=== PATIENT | male | born 1970 | race Caucasian/White ===

== ENCOUNTER → 2019-11-03 13:38 | Outpatient (CLI) | payer BC, SELFPAY ==
--- NOTE | ~2019-11-03 | CT_ITS ---
EXAMINATION: CT abdomen pelvis w con INDICATION: Left lower quadrant pain for one week TECHNIQUE: Computed tomographic images of the abdomen and pelvis were obtained after the administrati on of 100 cc of Omnipaque 350 intravenous contrast. The dose-length product (DLP) was 1086.39 mGy-cm. Automated exposure control and iterative reconstruction technique were employed. COMPARISON: None available FINDINGS: The lung bases are clear. The heart size is normal. The liver, spleen, pancreas, gallbladde r, and adrenal glands are normal. The kidneys are unremarkable. No pathologically enlarged abdominal or pelvic lymph nodes are identified. There is colonic diverticulosis. In the region of the sigmoid c olon, there is wall thickening with edematous stranding of the perisigmoid fat and multiple foci of l eft-sided abdominal gas. There are no dilated loops of bowel. The appendix is normal. There is mild l umbar spondylosis. IMPRESSION: 1. Perforated sigmoid diverticulitis. These findings were discussed with Dr. Anay Dawn MD at 152 4 hours on 11/03/2019. Reviewed, dictated and finalized at location A. [employer]ITOLOG[employer] TEACHER IMPRESSION: 1. Perforated sigmoid diverticulitis. These findings were discussed with Dr. Hoa MD at 1524 hours on 11/03/2019.
[2019-11-03 14:24] LABS: Blood Urea Nitrogen 20 mg/dL (8-26); Estimated Glomerular Filt Rate 59
== END ==
PROVIDERS: PCP Family Medicine; Visit Provider Family Medicine
DX: R10.32 Left lower quadrant pain (principal); K57.32 Diverticulitis of large intestine without perforation or abscess without bleeding
CPT/HCPCS: 74177; Q9967

== ENCOUNTER 2019-11-03 17:54 | Inpatient (IN) | payer BC, SELFPAY ==
[2019-11-03 18:11] VITALS: BP 121/80; PULSE 99; RESP 18; TEMP 37.1; O2SAT 100
[2019-11-03 18:25] LABS: Basophils Percent Auto 0.4 % (0.2-1.2); Eosinophils Absolute Auto 0.2 K/mm3 (0-0.3); Eosinophils Percent Auto 1.9 % (0-4.4); Hematocrit 43.5 % (42.0-52.0); Hemoglobin 14.3 g/dL (14.0-18.0); Immature Granulocyte Percent A 1.2 % (0-0.5); Lymphocytes Absolute Auto 2.14 K/mm3 (0.9-3.2); Mean Corpuscular HGB Conc 32.9 g/dl (32-36); Mean Corpuscular Hemoglobin 28.2 pg (26-34); Mean Corpuscular Volume 85.8 fl (80-100); Mean Platelet Volume 9.5 fl (7.4-10.4); Monocytes Absolute Auto 0.7 K/mm3 (0.1-0.6); Monocytes Percent Auto 8.7 % (2.6-8.5); Neutrophils Absolute Auto 5.1 K/mm3 (1.3-6.7); Neutrophils Percent Auto 61.8 % (45.5-73.1); Platelet Count Result 304 k/mm3 (150-375); Red Blood Count 5.07 M/mm3 (4.6-6.20); Red Cell Distribution Width 11.7 % (11.5-14.5); White Blood Count 8.2 K/mm3 (4.5-10.0)
[2019-11-03 18:39] LABS: Alanine Aminotransferase 53 U/L (4-50); Albumin Level 4.3 g/dL (3.5-5.1); Alkaline Phosphatase 60 U/L (38-126); Aspartate Amino Transferase 36 U/L (17-59); Bilirubin,Total 0.4 mg/dL (0.2-1.3); Blood Urea Nitrogen 16 mg/dL (9-20); Calcium 9.3 mg/dL (8.4-10.2); Carbon Dioxide 26 mmol/L (22-30); Estimated CRCL calculation 86 ml/min; Estimated Glomerular Filt Rate > 60; Glucose 94 mg/dL (75-110)
[2019-11-03 18:44] LABS: Chloride 99 mmol/L (98-107); Lipase 273 U/L (23-300); Potassium 4.1 mmol/L (3.4-5.0); Sodium 137 mmol/L (137-145)
--- NOTE | 2019-11-03 19:10 | ED.ABDPAIN ---
HPI - Abdominal Pain General Chief Complaint: Abdominal Pain Stated Complaint: diverticulitis Time Seen by Provider: 11/03/19 19:08 Source: patient, family and RN notes reviewed Mode of arrival: other Limitations: no limitations History of Present Illness HPI narrative: Pt is a 49 y/o male who presents to the ED with c/o RLQ ABD pain that began a week ago. Pt was dx with diverticulitis a week ago, but he states that he could not get a CT scan until today. Pt was sent to the ED by his PCP with perforated diverticulitis. Pt has been taking Cipro and Flagyl for his diverticulitis. Pt states that two weeks ago he stopped taking a steroid for his asthma. Per pt's spouse, pt was taking Prednisone three weeks ago. Pt notes that he began to have testicular pain and he thought he had a hernia. Pt denies dysuria. MD elicited complaint: abdominal pain Pertinent past history: diverticulitis Onset (ago): week(s) (1) Pain Consistency: constant Location: RLQ Severity: mild Associated symptoms: other (testicular pain) Related Data Allergies Allergy/AdvReac Type Severity Reaction Status Date / Time sumatriptan Allergy Unknown Unknown Verified 10/28/19 10:50 ENVIRONMENTAL ALLERGENS Allergy Mild Unknown Uncoded 09/28/19 10:18 Review of Systems Review of Systems: All systems reviewed & are unremarkable except as noted in HPI and below Gastrointestinal: Gastrointestinal: Reports abdominal pain (RLQ) Genitourinary: Genitourinary: Denies dysuria and Reports testicular pain PMFSH Past Medical History Medical History (Updated 11/03/19 @ 20:20 by Rashel Delgado MD) Asthma Diverticulitis Hiatal hernia Surgical History Surgical History H/O sinus surgery History of repair of hiatal hernia Social History Social History Smoking status: Never smoker Second hand tobacco smoke exposure: No Alcohol intake: never Gender identity (if verbalized by the patient): Male Exam Const: General: healthy appearing, no acute distress and well developed Nutritional Appearance: well nourished Orientation/consciousness: patient oriented x3 (alert) and Other orientation findings (Alert) Limitations: no limitations HENMT: Head: normocephalic and atraumatic Ears: external ears normal General nose exam: No nasal discharge present and no epistaxis Face and sinus: face symmetric Mouth: Yes lip normal, Yes tongue normal and Yes moist mucous membranes Throat: other (No exudate, no erythema) Eyes: Conjunctivae: conjunctivae normal Sclera: sclerae normal EOM: EOMs intact bilaterally Neck: Neck: full ROM, no lymphadenopathy and supple Thyroid: thyroid normal Chest: Chest palpation & inspection: no tenderness Resp: Effort & Inspection: normal respiratory effort Auscultation: clear to auscultation bilaterally, no rales, no rhonchi, no wheezes and other (breath sounds equal) Cardio: Rate: regular rate Rhythm: regular rhythm Heart sounds: no gallops and no murmurs GI: Inspection: non-distended GI Palp: Yes abdominal tenderness (RLQ) Auscultation: other (bowel sounds present) : General: Yes no CVA tenderness Back/Spine/Pelvis: Back: no CVA tenderness Thoracic/Lumbar Spine: thoracic and lumbar spine normal to inspection Skin: General skin exam: normal color and no rashes or lesions noted Neuro: General: patient oriented x3 (alert), moves all extremities and no focal motor deficits Cranial nerves: Yes facial symmetry Speech: normal speech Motor exam (neuro): Motor abnormalities not present Extrem: General: normal to inspection, full ROM and no pedal edema Psych: Affect: normal affect Course Consultations Consultation #1: Discussed case with Christine (General Surgery). Accepts consult. Date: 11/03/19 Time: 19:51 Consultation #2: Discussed case with JASSON Portillo (Hospitalist). Accepts admission. Date: 11/03/19 Time: 19
[2019-11-03 19:42] LABS: Add Urine Microscopic? YES; Appearance Urine Clear (Clear); Bilirubin Urine Negative (Negative); Blood Urine Negative (Negative); Color Urine Yellow (Yellow); Glucose Urine UA Negative (Negative); Ketones Urine Negative (Negative); Leukocyte Esterase Ur 1+ LEU/UL (Negative); Nitrate Urine Negative (Negative); Protein Urine Negative (Negative); RBC Urine 0-2 /hpf (0-2); Squamous Epithelial Cell Urine Rare /hpf (Few); Urobilinogen Urine Negative mg/dL (<2.0); WBC Urine 0-3 /hpf
[2019-11-03 19:44] LABS: Specific Grav Ur 1.042 (1.001-1.035)
[2019-11-03 21:13] VITALS: BP 119/76; PULSE 100; RESP 17; O2SAT 98
[2019-11-03 22:00] VITALS: BP 122/76; PULSE 88; RESP 18; TEMP 36.7; O2SAT 99; BMI 29.5
--- NOTE | 2019-11-03 22:00 | ADMGEN ---
This patient, Paul Dia, was admitted to [address] [facility] Surg Room 313-01. Patient/family oriented to hospital policies and general routines including ID bracelet, bed and alarms, visiting hours, pain management, procedures, bathroom and other care routines, personal items, smoking policy, room service/diet, and visiting hours. Valuables list has been completed. Information on how to activate the Rapid Response Team has been discussed. Patient/Family are encouraged to report perceived risks to care and to ask questions if they do not understand what they are told or what they should do.
[2019-11-03] MEDS: LACTATED RINGERS 1,000 ML 125 ML IV CONT (23:08)
--- NOTE | 2019-11-04 05:09 | PM.IMHP ---
H&P: HPI History of Present Illness Chief complaint: COMPLICATED DIVERTICULITIS W/ PREFORATION on CT Narrative: Paul Dia is a 49 year old male with a past medical history asthma and prior hiatal hernia repair who presented to the ER after an outpatient CT scan demonstrated perforated diverticulitis. The patient reports that on the he was helping a friend get rid of some cases of water. At the end of the day when he went home he just did not feel well. He had some does mild lower abdominal discomfort in the left lower quadrant that felt as if it extended down into the testicle. Did not notice any swelling in the testicle. A couple of days later even the motion of sitting in a car was quite uncomfortable. He stated the pain was an 8/10 intensity and was similar to someone kicking in the stomach and not stopping.? Then on the night of the he developed chills and rigors. He had not had any nausea or vomiting. He has been having normal bowel movements. The patient had went his primary care physician's office on October 28 where he realized that the pain radiated from the right carotid stent to the left quadrant with palpation of his abdomen. He also had rebound tenderness in the left lower quadrant and he was started on Flagyl and Cipro for suspected diverticulitis. He was given order for CT scan of the abdomen but was unable to schedule the CT scan scheduled until November 03 due work. He reports that about an hour after he got the CT performed he was called and told to come to the ER because the CT demonstrated perforated sigmoid diverticulitis. He has been taking his antibiotics as directed. He reports his pain has gradually improved and is currently about a 1/10 intensity. He had looked up online the recommended diet for diverticulitis and has been drinking mostly clear liquid diet since his appointment with the doctor. He reports that his stools have been a bit softer since he was started on antibiotics but he denies any blood or mucus. He had also developed a little bit of a cough and tightness in his chest that he attributed to a side effect of the antibiotics. He reported sensation was similar to when he was having difficulties with his asthma but his inhalers were not helping. He states that since he arrived to the hospital those symptoms have improved. He has not had been having any difficulty with urination. He has 3 brothers who have had diverticulitis and his father has also suffer from diverticulitis. He has 7 brothers and a sister. His sister at age 7 of Timo syndrome. Review of Systems Review of Systems: Narrative: Except as documented in the HPI, all other systems were reviewed and are negative. 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 Family History Family History (Updated 11/03/19 @ 22:15 by Talia Bacon RN) Mother Breast cancer Father Bladder cancer Sibling Timo syndrome Sibling Diverticulitis Sibling Diverticulitis Sibling Diverticulitis Social History Social History (Updated 11/04/19 @ 05:52 by Melissa Rodriges DO) Social History: Primary care physician: Dr. Anay Dawn Smoking status: Never smoker Second hand tobacco smoke exposure: No Alcohol intake: current Drinks per week: 3 Alcohol use details: The patient works at a [employer]. Substance use: never Living arrangements: with family Additional katy
[2019-11-04 06:00] VITALS: BP 117/75; PULSE 75; RESP 18; TEMP 37.1; O2SAT 98
[2019-11-04 07:44] LABS: Basophils Percent Auto 0.2 % (0.2-1.2); Eosinophils Absolute Auto 0.2 K/mm3 (0-0.3); Hematocrit 41.3 % (42.0-52.0); Hemoglobin 13.7 g/dL (14.0-18.0); Immature Granulocyte Absolute 0.06 K/mm3 (0.00-0.031); Immature Granulocyte Percent A 1.1 % (0-0.5); Lymphocytes Absolute Auto 1.73 K/mm3 (0.9-3.2); Lymphocytes Percent Auto 32.6 % (18.3-44.2); Mean Corpuscular HGB Conc 33.2 g/dl (32-36); Mean Corpuscular Hemoglobin 28.2 pg (26-34); Mean Corpuscular Volume 85.2 fl (80-100); Mean Platelet Volume 9.4 fl (7.4-10.4); Monocytes Absolute Auto 0.4 K/mm3 (0.1-0.6); Monocytes Percent Auto 8.1 % (2.6-8.5); Neutrophils Absolute Auto 2.9 K/mm3 (1.3-6.7); Platelet Count Result 259 k/mm3 (150-375); Red Blood Count 4.85 M/mm3 (4.6-6.20); Red Cell Distribution Width 11.5 % (11.5-14.5); White Blood Count 5.3 K/mm3 (4.5-10.0)
[2019-11-04] MEDS: LACTATED RINGERS 1,000 ML 125 ML IV CONT ×2 (07:53→16:20)
[2019-11-04 07:59] LABS: Blood Urea Nitrogen 14 mg/dL (9-20); Calcium 8.9 mg/dL (8.4-10.2); Carbon Dioxide 28 mmol/L (22-30); Chloride 99 mmol/L (98-107); Estimated CRCL calculation 71 ml/min; Estimated Glomerular Filt Rate 59; Glucose 101 mg/dL (75-110); Potassium 4.5 mmol/L (3.4-5.0); Sodium 139 mmol/L (137-145)
[2019-11-04 08:00] VITALS: PULSE 75; RESP 18; O2SAT 98
--- NOTE | 2019-11-04 09:43 | PM.CNGS ---
Assessment and Plan Assessment and plan (1) Diverticulitis of large intestine with complication: Code(s): K57.32 - Diverticulitis of large intestine without perforation or abscess without bleeding Status: Acute Assessment and Plan: CT scan reviewed and discussed with the patient. He has evidence of sigmoid diverticulitis with microperforation, which is his first episode. No evidence of abscess. White blood cell count is normal, patient is afebrile, and he had already began improving clinically while on the oral antibiotics. He currently is having no pain but is [employer]. I discussed the pathophysiology of perforated diverticulitis with the patient and the treatment plan at this point. We will continue IV antibiotics, analgesics, and IV fluids. We will allow him to try a clear liquid diet now and try slowly advancing him to a low fiber diet eventually. Hopefully, he will continue to improve with current treatment, but I did discuss how perforated diverticulitis could progress if it does not improve with current treatment. We will continue to follow the patient with serial abdominal exams and labs. Thank you for allowing me to see the patient in consultation and we will continue to follow along with you. Additional Plan Discussed the patient's case and plan of care with Dr. King. History of Present Illness Consult details Consult date: 11/04/19 Reason for consult: other (Perforated sigmoid diverticulitis) Requesting physician: Rashel Delgado MD Narrative: This is a 49-year-old male with a history of asthma and a Melvina Fundoplication in 2013, who presented to the emergency department yesterday by the instruction of his primary care provider. He reports initially having an onset of left testicular pain that radiates to his left hip and left lower abdomen on 's weekend. He had recently been carrying large cases of water and thought he possibly had caused a hernia due to heavy lifting. He denies bulging or swelling around the groin, but did feel his left testicle was slightly swollen. He was tolerating a diet and his bowels were moving normally. The pain was mild and continuous but intermittently would increase in severity. He reports associated chills and body aches, but no fever. He then presented to his primary care provider on 10/28/19 for the testicular and abdominal pain. He was treated with oral antibiotics for diverticulitis and a CT scan of the abdomen and pelvis was ordered. He had been taking the oral antibiotics as prescribed and his pain improved after about 24 hours on the oral antibiotics. His CT scan was unable to be scheduled until yesterday, 11/03/2019. He presented for the CT, which showed perforated sigmoid diverticulitis. There was no mention of inguinal hernias. The patient's PCP called him and instructed him to present to the emergency department for further evaluation. Labs were unremarkable with a normal white blood cell count. The patient was admitted to the hospitalist service and started on IV antibiotics, IV fluids, and made NPO. Our service was consulted for surgical evaluation of the perforated sigmoid diverticulitis. The patient is now seen on the medical floor this morning. He reports no abdominal or testicular pain at this time. He states his left lower abdomen is [employer], but less tender than when he saw his PCP a few days ago. He states initially he was unable to sleep on his stomach and his pain has improved significantly enough to be able the lie on his stomach at night. He denies any nausea, vomiting, or bloating. Reports his bowels have been moving normally without any blood noted in his stool. Denies any history of diverticulitis in the past. Reports he has been eating a regular diet and eating normally. Denies changes in urination or hematuria. Denies swelling or pain in the testicles today. No other complaints at this time. Also to note, the patient was rec
--- NOTE | 2019-11-04 10:07 | PM.IMPN ---
Progress Note: A&P Assessment and Plan (1) Diverticulitis of large intestine with complication: Code(s): K57.32 - Diverticulitis of large intestine without perforation or abscess without bleeding Status: Acute Assessment and Plan: Patient's symptoms had been improving even on PO antibiotics; since CT findings, patient has been placed on IV Zosyn. WBC WNL, VSS, afebrile. General surgery has been consulted and appreciate recommendations. Continue IVF and await further recommendations from General surgery; possible advancement in diet today NPO for now Monitor (2) Asthma: Code(s): J45.909 - Unspecified asthma, uncomplicated Status: Acute Assessment and Plan: Slight SOB today. Declined neb treatment today Continue home Advair, albuterol Continue Neb treatments as needed Subjective Date/time seen: 11/04/19 10:07 Interval history: Patient is a 49 yo M with history of asthma and hiatal hernia with h/o repair here for diverticulitis with recently discovered perforation on CT imaging. Patient states he has been improving with his PO antibiotics prior to admission, and continues to do well. Does not complain of any pain. No changes in BMs; no blood/melena/mucus. No n/v. He feels slightly short of breath today, he thinks is related to his asthma. Otherwise no complaints. Denies f/c/ns, headaches, dizziness, lightheadedness, changes in v/h, cp/palpitations, cough, n/v/d/c, abd pain, dysphagia, melena, brbpr, dysuria, hematuria, cloudy urine, calf pain/swelling, s/sx of stroke Review of Systems Review of Systems: All systems reviewed & are unremarkable except as noted in HPI and below Exam Narrative: Exam Narrative: Patient sitting upright in bed at time of visit; is in room visiting at time Const: General: cooperative, healthy appearing, comfortable, no acute distress, well developed and alert Nutritional Appearance: well nourished Orientation/consciousness: patient oriented x3 HENMT: Head: normocephalic and atraumatic General nose exam: Normal nares present Face and sinus: face symmetric Mouth: Yes tongue normal and Yes moist mucous membranes Teeth and gingiva: fair dentition Throat: posterior oropharynx normal and uvula midline Eyes: General: appearance normal, both eyes and all related structures Sclera: sclerae normal Pupils: Equal, round and reactive pupils present EOM: EOMs intact bilaterally Neck: Neck: trachea midline and supple Resp: Effort & Inspection: normal respiratory effort Auscultation: clear to auscultation bilaterally Cardio: Rate: regular rate Rhythm: regular rhythm Heart sounds: no murmurs GI: Inspection: non-distended GI Palp: Yes abdominal tenderness (Lower abdomen) and Yes Soft to palpation Auscultation: normal bowel sounds and normoactive bowel sounds Skin: General skin exam: normal color and no rashes or lesions noted Neuro: General: patient oriented x3, moves all extremities and no focal motor deficits Motor exam (neuro): 5/5 motor strength present throughout Extrem: Right lower extremity: no edema Left lower extremity: no edema Other: No calf ttp/swelling Psych: Mental Status: mental status grossly normal Affect: normal affect Objective Data Vital Signs Vital Signs: Vital Signs - 24 hr 11/03/19 18:11 11/03/19 21:13 11/03/19 22:00 Temperature 98.7 F 98.0 F Pulse Rate 99 100 88 Respiratory Rate 18 17 18 Blood Pressure 121/80 119/76 122/76 Pulse Oximetry 100 98 99 11/04/19 06:00 Temperature 98.7 F Pulse Rate 75 Respiratory Rate 18 Blood Pressure 117/75 Pulse Oximetry 98 Intake/Output Intake/Output: Intake & Output 11/01/19 11/02/19 11/03/19 11/04/19 23:59 23:59 23:59 23:59 Intake Total 50 1050 Output Total 700 Balance 50 350 Meds/Results Medications: Active Medications Generic Name Dose Route Start Last Admin Trade Name F
[2019-11-04] MEDS: LORATADINE 10 MG TABLET PO (11:47)
[2019-11-04 14:00] VITALS: BP 124/71; PULSE 72; RESP 20; TEMP 36.6; O2SAT 97
[2019-11-04 22:00] VITALS: BP 114/69; PULSE 72; RESP 18; TEMP 36.5; O2SAT 98
[2019-11-05 06:00] VITALS: BP 115/62; PULSE 77; RESP 18; TEMP 36.7; O2SAT 98
[2019-11-05 06:25] LABS: Basophils Percent Auto 0.3 % (0.2-1.2); Eosinophils Absolute Auto 0.3 K/mm3 (0-0.3); Hematocrit 40.6 % (42.0-52.0); Hemoglobin 13.2 g/dL (14.0-18.0); Immature Granulocyte Absolute 0.05 K/mm3 (0.00-0.031); Immature Granulocyte Percent A 0.8 % (0-0.5); Lymphocytes Absolute Auto 1.86 K/mm3 (0.9-3.2); Mean Corpuscular HGB Conc 32.5 g/dl (32-36); Mean Corpuscular Hemoglobin 28.3 pg (26-34); Mean Corpuscular Volume 87.1 fl (80-100); Mean Platelet Volume 9.6 fl (7.4-10.4); Monocytes Absolute Auto 0.5 K/mm3 (0.1-0.6); Monocytes Percent Auto 8.4 % (2.6-8.5); Neutrophils Absolute Auto 3.5 K/mm3 (1.3-6.7); Neutrophils Percent Auto 56.5 % (45.5-73.1); Platelet Count Result 246 k/mm3 (150-375); Red Blood Count 4.66 M/mm3 (4.6-6.20); Red Cell Distribution Width 11.5 % (11.5-14.5); White Blood Count 6.2 K/mm3 (4.5-10.0)
[2019-11-05] MEDS: LORATADINE 10 MG TABLET PO (08:02)
--- NOTE | 2019-11-05 10:52 | PM.PNGS ---
Progress Note: A&P Assessment and Plan (1) Diverticulitis of large intestine with complication: Code(s): K57.32 - Diverticulitis of large intestine without perforation or abscess without bleeding Status: Acute Assessment and Plan: Patient continues to clinically improve. He is having no abdominal pain and is non-tender on exam. He is afebrile and WBC normal today. Will advance him as tolerated to a low fiber diet today. If he is tolerating the low fiber diet later today, then it is okay from a surgical standpoint to discharge the patient home this afternoon. Will send him on 10 more days of oral antibiotics and switch him to Levaquin/Flagyl. Follow-up with Dr. King in our office in 2 weeks. Subjective Subjective Date/Time Seen: 11/05/19 10:00 Patient reports: no new complaints, feels better and bowel movement Interval history: Patient seen and examined. Reports tolerating clear liquids well. Just had a full liquid tray and has no complaints following this. Denies nausea, vomiting, or bloating. Reports having multiple loose bowel movements overnight. Denies any abdominal pain. No other complaints at this time. Review of Systems Review of Systems: All systems reviewed & are unremarkable except as noted in HPI and below Exam Const: General: comfortable, no acute distress, alert and awake GI: Inspection: normal to inspection and non-distended GI Palp: Yes Soft to palpation, No Tenderness to palpation present (GI), No Guarding due to palpation present (GI) and No Rebound tenderness present Auscultation: normal bowel sounds Neuro: General: moves all extremities and no focal motor deficits Psych: Mental Status: mental status grossly normal Attitude: cooperative Thought process: Normal thought process present Objective Data Vital Signs Vital Signs: Vital Signs - 24 hr 11/04/19 14:00 11/04/19 22:00 11/05/19 06:00 Temperature 36.6 C 36.5 C 36.7 C Pulse Rate 72 72 77 Respiratory Rate 20 18 18 Blood Pressure 124/71 114/69 115/62 Pulse Oximetry 97 98 98 Intake/Output Intake/Output: Intake & Output 11/02/19 11/03/19 11/04/19 11/05/19 23:59 23:59 23:59 23:59 Intake Total 50 3150 550 Output Total 700 Balance 50 1230 550 Meds/Results Medications: Active Medications Generic Name Dose Route Start Last Admin Trade Name Freq PRN Reason Stop Dose Admin Acetaminophen 650 mg 11/03/19 20:17 Tylenol Tablet PO Q4H PRN Mild Pain (1-3) or Fever Albuterol 1 puff 11/04/19 10:04 Proventil Hfa INHALATION Q4H PRN shortness of breath or wheezing Piperacillin/Tazobactam/Dextrose 3.375 gm in 50 mls @ 100 mls/hr 11/04/19 03:00 11/05/19 08:43 Zosyn 3.375 Gm/D5w 50ml Pm IVPB Infused Q6H DREA Infusion Loratadine 10 mg 11/04/19 09:00 11/05/19 08:02 Claritin PO 10 mg QAM DREA Administration Ondansetron HCl 4 mg 11/03/19 20:17 Zofran Inj IV PUSH Q4H PRN Nausea Fluticasone/Salmeterol 2 puff 11/04/19 08:00 11/05/19 08:30 Advair Hfa 115-21 Mcg Inhaler (*Sp) INHALATION 2 puff Q12HRT DREA Administration Labs Labs: Laboratory Results - last 24 hr 11/05/19 05:56 WBC 6.2 RBC 4.66 Hgb 13.2 L Hct 40.6 L MCV 87.1 MCH 28.3 MCHC 32.5 RDW 11.5 Plt Count 246 MPV 9.6 Immature Gran % (Auto) 0.8 H Neut % (Auto) 56.5 Lymph % (Auto) 30.0 [place] % (Auto) 8.4 Eos % (Auto) 4.0 Baso % (Auto) 0.3 Lymph # (Auto) 1.86 [place] # (Auto) 0.5 Eos # (Auto) 0.3 Baso # (Auto) 0.0 Abs Immat Gran (auto) 0.05 H Absolute Neuts (auto) 3.5 Absolute Nucleated RBC 0.0 Nucleated RBC % 0.0 Quality VTE Prophylaxis VTE prophylaxis: mechanical ordered
--- NOTE | 2019-11-05 11:32 | PM.DS ---
DS: Diagnosis Admitting Diagnosis Admitting Diagnosis: Diverticulitis of large intestine without perforation or abscess without bleeding Discharge Diagnosis (1) Diverticulitis of large intestine with complication: Code(s): K57.32 - Diverticulitis of large intestine without perforation or abscess without bleeding Status: Acute Assessment and Plan: Patient's symptoms continue to improve today and had been improving even on PO antibiotics prior to admission; since CT findings, patient has been placed on IV Zosyn. WBC WNL, VSS, afebrile. Non-bloody BM today. Tolerating PO thus far. General surgery has been consulted and appreciate recommendations. Patient's diet to be advanced per Surgery recommendations [employer] consulted PO antibiotics at discharge Monitor today; possibly home later today (2) Asthma: Code(s): J45.909 - Unspecified asthma, uncomplicated Status: Acute Assessment and Plan: No complaints today. Lung exam unremarkable Continue home Advair, albuterol DS: Summary Hospital Course Reason for hospitalization: Perforated diverticulitis Hospital Course: Patient is a 49 yo M with history of asthma and prior hiatal hernia repair who presented to the ER on 11/03 from instructions from his PCP after an outpatient CT scan demonstrated perforated diverticulitis. Patient began noticing symptoms of mild lower abdominal discomfort on 10/23; this pain was mainly in LLQ and radiated to the testicle. Over the next couple of days, he noticed the pain worsening. on 10/27 he began to have chills and rigors. He then went to his PCP on 10/28 where upon physical exam, it was felt patient had diverticulitis; he was subsequently started on PO cipro and flagyl from his PCP but was unable to perform CT of the abdomen until 11/03 due to work. This CT then showed findings consistent of perforated diverticulitis and patient was instructed to proceed to the ER for further evaluation. Please see H&P for further details Presenting VS: BP 121/80, HR 99, RR 18, temp 98.7, sat 100% RA Presenting Pertinent labs: CBC, CMP, lipase, UA grossly unremarkable upon arrival to ER Micro: none Imagin/25 CT abd/pelvis IMPRESSION: 1. Perforated sigmoid diverticulitis. These findings were discussed with Dr. Anay Dawn MD at 1524 hours on 11/03/2019. ECG: none Patient was admitted to the hospitalist service for further evaluation of perforated diverticulitis; General Surgery was consulted for further input and recommendations. Patient had noted that his symptoms had actually been improving with PO antibiotics prior to his admission date. His PO antibiotics were held upon arrival and patient was placed on IV zosyn during his hospital course. He was made NPO and over the course of his hospital stay, his diet was advanced to a low fiber diet per Surgery recommendations; this proceeded without any issues. On day of discharge, his symptoms had nearly resolved, having non-bloody, non-mucus BMs. Patient was hemodynamically stable and in improved condition for discharge on 11/05. He was discharge on PO Flagyl and Levaquin per Surgery recommendations. He was to follow up with Surgery in 2 weeks after discharge and with his PCP. Patient agreeable and comfortable with discharge plan. Status at Discharge Overall status at discharge: patient is progressing back to baseline Time Spent with Patient Time attestation: Total time spent providing and/or coordinating discharge services: 35 minutes Time spent: Greater than 30 minutes Exam Narrative: Exam Narrative: Patient sitting upright in bed at time of visit Const: General: cooperative, healthy appearing, comfortable, no acute distress, well developed and alert Nutritional Appearance: well nourished Orientation/consciousness: patient oriented x3 HENMT: Head: normocephalic and atraumatic General nose exam: Normal nares pres
--- NOTE | 2019-11-05 13:58 | PCNSR ---
On 11/05/19, the student, Magaly Zavala, provided low fiber education and completed [facility] documentation on this patient. I have reviewed the student's documentation and agree with the education.
== END 2019-11-05 16:15 | disposition home or self-care (01) | DRG 392 ==
LOC: ANHED 20:20 → ANH3MEDSUR 11-04 05:13
PROVIDERS: Emergency Medicine; Admitting Provider Internal Medicine; Emergency Provider Emergency Medicine; PCP Family Medicine; Visit Provider Physician Assistant
DX: K57.20 Diverticulitis of large intestine with perforation and abscess without bleeding (principal); J45.909 Unspecified asthma, uncomplicated; K46.9 Unspecified abdominal hernia without obstruction or gangrene
CPT/HCPCS: 36415; 74177; 80048; 80053; 81001; 83690; 85025; 94640; 96365; 99285; A9270; J2543; J7120

== ENCOUNTER → 2020-06-14 07:50 | Outpatient (CLI) | payer BC, SELFPAY ==
--- NOTE | ~2020-06-14 | XR_ITS ---
EXAMINATION: XR thoracic spine 2V DATE: 06/14/2020 08:29 INDICATION: Mid back pain TECHNIQUE: AP, lateral and lateral swimmer's views of the thoracic spine were obtained. COMPARISON: 05/14/2009 FINDINGS: There is mild S shaped curvature of the thoracic spine. No fracture is identified. The vert ebral body heights and alignment are maintained. There is mild loss of intervertebral disc space heig ht in the lower thoracic spine. Small degenerative osteophytes project from the anterior endplates of multiple vertebral bodies. IMPRESSION: 1. Mild thoracic spondylosis without acute findings. Reviewed, dictated and finalized at location A.
== END ==
PROVIDERS: PCP Family Medicine; Visit Provider Family Medicine
DX: R10.9 Unspecified abdominal pain (principal); M47.894 Other spondylosis, thoracic region
CPT/HCPCS: 72070

== ENCOUNTER → 2020-06-20 10:33 | Outpatient (CLI) | payer BC, SELFPAY ==
--- NOTE | ~2020-06-20 | CT_ITS ---
EXAMINATION: CT abdomen pelvis w con INDICATION: Left upper quadrant abdominal pain, history of perforated diverticulitis TECHNIQUE: Computed tomographic images of the abdomen and pelvis were obtained after the administrati on of 100 cc of Omnipaque 350 intravenous contrast. The dose-length product (DLP) was 1095.43 mGy-cm. Automated exposure control and iterative reconstruction technique were employed. COMPARISON: 11/03/2019 FINDINGS: The lung bases are clear. The heart size is normal. The liver, spleen, pancreas, gallbladde r, and adrenal glands are normal. The kidneys are unremarkable. No pathologically enlarged abdominal or pelvic lymph nodes are identified. There is no free intraperitoneal gas or evidence of bowel obstr uction. Colonic diverticulosis is present without evidence of diverticulitis. The appendix is normal. There is moderate lumbar spondylosis at L5-S1. Tiny fat-containing umbilical hernias are noted. IMPRESSION: 1. No CT correlate for the patient's symptoms. Diverticulosis without evidence of diverticulitis. Reviewed, dictated and finalized at location A.
== END ==
PROVIDERS: PCP Family Medicine; Visit Provider Family Medicine
DX: R10.12 Left upper quadrant pain (principal)
CPT/HCPCS: 74177; Q9967

== ENCOUNTER 2020-09-13 00:59 | Outpatient (CLI) | payer BC, SELFPAY ==
[2020-09-13 19:42] LABS: SARS-CoV-2 RNA PCR Negative
== END 2020-09-13 01:00 | disposition home or self-care (01) ==
LOC: ANHCOVIDDT 01:00
PROVIDERS: PCP Family Medicine; Visit Provider Internal Medicine Gastroenterology
DX: Z01.812 Encounter for preprocedural laboratory examination (principal); Z20.822 Contact with and (suspected) exposure to COVID-19
CPT/HCPCS: C9803; U0003

== ENCOUNTER 2020-09-16 00:49 | Day surgery (SDC) | payer BC, SELFPAY ==
[2020-08-31 11:00] VITALS: BMI 30.2
[2020-09-16 06:54] VITALS: BP 120/78; PULSE 81; RESP 18; TEMP 36.1; O2SAT 98
[2020-09-16] MEDS: LACTATED RINGERS 1,000 ML 150 ML IV CONT (07:10)
--- NOTE | 2020-09-16 07:26 | WPDANESEPPF ---
Anes - Initial Pre Proc Eval Procedure: Operation Date: 09/16/20 08:00 Proposed Procedures p Screening Colonoscopy - Kory Stephenson MD Date/Time: 09/16/20 07:26 Surgeon: Kory Stephenson MD Pre Op Diagnosis: neoplasm screening Patient Data Age: 50 Gender: M Height: 6 ft 1 in Weight: 104.7 kg Last Vital Signs Temp 96.9 F L 09/16/20 06:54 Pulse 81 09/16/20 06:54 Resp 18 09/16/20 06:54 BP 120/78 09/16/20 06:54 Pulse Ox 98 09/16/20 06:54 Allergies Allergy/AdvReac Type Severity Reaction Status Date / Time adhesive tape Allergy Intermediate Rash Verified 08/31/20 11:06 Home Medications Medication Instructions Recorded Confirmed Type albuterol sulfate 90 mcg/actuation 1 puff INHALATION Q4H PRN #18 gm 09/28/19 08/31/20 Rx aerosol inhaler Advil Allergy Sinus 1 tablet PO Q4-6H PRN 11/03/19 08/31/20 History Daya-D 24 Hour 1 tablet PO QAM 11/03/19 08/31/20 History fluticasone 500 mcg-salmeterol 50 1 inh INHALATION Q12H #60 ea 08/08/20 08/31/20 Rx mcg/dose blistr powdr for inhalation meloxicam 15 mg tablet 15 mg PO DAILY #30 tablet 08/22/20 08/31/20 Rx montelukast 10 mg tablet 10 mg PO DAILY #90 tablet 09/07/20 Rx Patient hx anesthesia problems: none Family hx anesthesia problems: none [facility] Past Medical History Medical History (Updated 08/08/20 @ 13:58 by Anay Dawn MD) Asthma Hiatal hernia Repaired in 2013 at [facility]. Mild persistent asthma Surgical History Surgical History H/O sinus surgery 2011. History of repair of hiatal hernia Laparoscopic Melvina fundoplication performed at [facility] in 2013. Family History Family History Mother Breast cancer Father Bladder cancer Diverticulitis Sibling Timo syndrome Sibling Diverticulitis Sibling Diverticulitis Sibling Diverticulitis Social History Social History Social History: Primary care physician: Dr. Anay Dawn Smoking status: Never smoker Second hand tobacco smoke exposure: No Alcohol intake: current Drinks per week: 3 Alcohol use details: BEERS Substance use: never Substance use type: does not use Living arrangements: with family Additional living arrangements comments: His and 2 daughters aged 14 and 10. 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 Gender identity (if verbalized by the patient): Male Spiritual care concerns: No Agree to blood products: Yes Anes - Eval Final PreProcedure Day of Procedure 09/16/20 07:26 Patient weight: overweight Heart: regular rate and rhythm Lungs: clear to auscultation Airway: Mallampati scale class II Neurological: alert and oriented Last oral intake: >/= 8 hours ASA classification: II Emergent: no Anesthetic plan: proceed Anesthesia type and monitoring: general GIVS and standard monitoring Informed Consent: The patient's anesthetic plan and its attendant risks and benefits were discussed with the patient/family/POA. Questions were solicited and answers provided to the satisfaction of the patient/family/POA.
--- NOTE | 2020-09-16 07:48 | PM.HPGS ---
History of Present Illness History of Present Illness Consent: Risks, benefits, and alternatives have been discussed and questions answered. Patient agrees to proceed with procedure. Chief complaint: neoplasm screening Narrative: Paul Dia is a 50 year old male with diverticulitis several months ago, now asymptomatic but never had a colonoscopy Review of Systems Constitutional: Constitutional: Denies headache(s) and Denies weakness Eyes: Eyes: Denies blurry vision ENT: Reports Normal hearing present, Denies headache(s) and Denies neck pain Cardiovascular: Cardiovascular: Denies chest pain and Denies dyspnea Respiratory: Respiratory: Denies dyspnea Gastrointestinal: Gastrointestinal: Reports no additional gastrointestinal complaints Genitourinary: Genitourinary: Denies dysuria Musculoskeletal: Musculoskeletal: Denies neck pain Integumentary/Breasts: Skin/Breast: Denies dry skin Neurologic: Reports Normal hearing present, Denies headache(s) and Denies weakness Psychiatric: Psychiatric: Denies anxiety Endocrine: Endocrine: Denies change in body appearance Hematologic/Lymphatic: Hematologic/Lymphatic: Denies easy bleeding Allergic/Immunologic: Allergic/Immunologic: Denies urticaria PMFSH Past Medical History Medical History (Updated 08/08/20 @ 13:58 by Anay Dawn MD) Asthma Hiatal hernia Repaired in 2013 at [facility]. Mild persistent asthma Surgical History Surgical History H/O sinus surgery 2011. History of repair of hiatal hernia Laparoscopic Melvina fundoplication performed at [facility] in 2013. Family History Family History Mother Breast cancer Father Bladder cancer Diverticulitis Sibling Timo syndrome Sibling Diverticulitis Sibling Diverticulitis Sibling Diverticulitis Social History Social History Social History: Primary care physician: Dr. Anay Dawn Smoking status: Never smoker Second hand tobacco smoke exposure: No Alcohol intake: current Drinks per week: 3 Alcohol use details: BEERS Substance use: never Substance use type: does not use Living arrangements: with family Additional living arrangements comments: His and 2 daughters aged 14 and 10. 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 Gender identity (if verbalized by the patient): Male Spiritual care concerns: No Agree to blood products: Yes Meds Home Medications and Allergies Home Medications Medication Instructions Recorded Confirmed Type albuterol sulfate 90 mcg/actuation 1 puff INHALATION Q4H PRN #18 gm 09/28/19 08/31/20 Rx aerosol inhaler Advil Allergy Sinus 1 tablet PO Q4-6H PRN 11/03/19 08/31/20 History Daya-D 24 Hour 1 tablet PO QAM 11/03/19 08/31/20 History fluticasone 500 mcg-salmeterol 50 1 inh INHALATION Q12H #60 ea 08/08/20 08/31/20 Rx mcg/dose blistr powdr for inhalation meloxicam 15 mg tablet 15 mg PO DAILY #30 tablet 08/22/20 08/31/20 Rx montelukast 10 mg tablet 10 mg PO DAILY #90 tablet 09/07/20 Rx Allergies Allergy/AdvReac Type Severity Reaction Status Date / Time adhesive tape Allergy Intermediate Rash Verified 08/31/20 11:06 Vital Signs Vital Signs - 24 hr 09/16/20 06:54 Temperature 96.9 F L Pulse Rate 81 Respiratory Rate 18 Blood Pressure 120/78 Pulse Oximetry 98 Exam Const: General: comfortable and no acute distress HENMT: General nose exam: Normal nares present Eyes: General: appearance normal, both eyes and all related structures Neck: Neck: no JVD Resp: Auscultation: clear to auscultation bilaterally Cardio: Rate: regular rate Rhythm: regular rhythm GI: Inspection: non-distended GI Palp: Yes Soft to palpation Skin: Gen
[2020-09-16 08:13] VITALS: BP 100/64; PULSE 76; RESP 20; O2SAT 100
[2020-09-16 08:23] VITALS: BP 111/75; PULSE 78; RESP 22; O2SAT 98
[2020-09-16 08:33] VITALS: BP 113/76; PULSE 80; RESP 20; O2SAT 99
== END 2020-09-16 08:40 | disposition home or self-care (01) ==
PROVIDERS: PCP Family Medicine; Visit Provider Internal Medicine Gastroenterology
PROC: 0DJD8ZZ Inspection of Lower Intestinal Tract, Via Natural or Artificial Opening Endoscopic (ICD-10-PCS; CPT 45378; principal; 2020-09-16 08:00)
DX: Z12.11 Encounter for screening for malignant neoplasm of colon (principal); K57.30 Diverticulosis of large intestine without perforation or abscess without bleeding; Z79.51 Long term (current) use of inhaled steroids; J45.909 Unspecified asthma, uncomplicated; Z87.19 Personal history of other diseases of the digestive system; K64.8 Other hemorrhoids
CPT/HCPCS: 45378; C9803; J2704; J7120; U0003

== ENCOUNTER 2022-12-04 08:50 | Emergency (ER) | payer BC, SELFPAY ==
[2022-12-04 09:04] VITALS: BP 125/70; PULSE 82; RESP 18; TEMP 36.1; O2SAT 100
--- NOTE | 2022-12-04 09:10 | ED.URI ---
HPI - URI/Sore Throat General Chief Complaint: Upper Respiratory Infection Stated Complaint: chest congestion Time Seen by Provider: 12/04/22 09:10 Source: patient and RN notes reviewed Mode of arrival: ambulatory Limitations: no limitations History of Present Illness HPI Narrative: 52-year-old male presented for complaint of cough and chest congestion since yesterday. He endorses 2-3 days ago he started with sinus congestion and drainage, and states he feels this moved to his chest. He has been taking Mucinex and coughed up yellow/brown phlegm this morning. He denies increased shortness of breath, wheezing, nausea, vomiting, diarrhea, bodyaches, fevers or chills. Endorses a history of asthma has been compliant with inhalers and has not needed albuterol rescue inhaler recently. Endorses sick contacts, states his daughter has similar symptoms. MD elicited complaint: cough Related Data Home Medications Medication Instructions Recorded Confirmed fexofenadine-pseudoephedrine ER 1 tablet PO QAM 11/03/19 12/04/22 180 mg-240 mg tablet,ext.release 24 hr (Daya-D 24 Hour) Allergies Allergy/AdvReac Type Severity Reaction Status Date / Time adhesive tape AdvReac Mild Rash Verified 12/04/22 08:54 Review of Systems Review of Systems: CONSTITUTIONAL: Denies malaise, chills, sweats, fever EYES: Denies visual changes, redness, or discharge ENT: Reports rhinorrhea, congestion, denies sinus pain, otalgia, sore throat CARDIOVASCULAR: Denies chest pain, palpitations, edema RESPIRATORY: Reports cough, post nasal drainage. Denies dyspnea GASTROINTESTINAL: Denies abdominal pain, nausea, vomiting, diarrhea SKIN: Denies rash or itching MUSCULOSKELETAL: Denies myalgia NEUROLOGIC: Denies headache [facility] Past Medical History Medical History Asthma Hiatal hernia Repaired in 2013 at [facility]. Mild persistent asthma Surgical History Surgical History H/O sinus surgery 2011. History of repair of hiatal hernia Laparoscopic Melvina fundoplication performed at [facility] in 2013. Family History Family History Mother Breast cancer Father Bladder cancer Diverticulitis Sibling Timo syndrome Sibling Diverticulitis Sibling Diverticulitis Sibling Diverticulitis Social History Social History Social History: Primary care physician: Dr. Anay Dawn Smoking status: Never smoker Second hand tobacco smoke exposure: No Alcohol intake: current Drinks per week: 3 Alcohol use details: BEERS Substance use: never Substance use type: does not use Living arrangements: with family Additional living arrangements comments: His and 2 daughters aged 14 and 10. 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 Gender identity (if verbalized by the patient): Male Spiritual care concerns: No Agree to blood products: Yes Exam Narrative: GENERAL: well-appearing, nontoxic no acute distress. HEAD: Normocephalic EYES: PERRLA, conjunctivae clear ENT: Mucous membranes moist. nasal congestion. TM pearly doan with dull light reflex bilaterally; no tragal tenderness. Oropharynx without erythema, lesions or exudate NECK: Supple. No lymphadenopathy CHEST: Clear to auscultation, breath sounds equal. No wheezing, rhonchi, rales, or stridor. No respiratory distress, speaks in full sentences. HEART: Regular rate and rhythm. No murmur heard. SKIN: Warm, dry, no rash. NEURO: Alert and oriented x3. PSYCH: Normal mood and affect Course Course Emergency Course: Patient is aware of diagnosis, understands and agrees to treatment plan. Anticipatory guidance given. Patient agrees to
== END 2022-12-04 09:20 | disposition home or self-care (01) ==
PROVIDERS: Emergency Provider Nurse Practitioner Family; PCP Family Medicine
DX: J40 Bronchitis, not specified as acute or chronic (principal); J45.909 Unspecified asthma, uncomplicated
CPT/HCPCS: 99213; G0463

== ENCOUNTER 2024-05-14 14:26 | Emergency (ER) | payer BC, SELFPAY ==
[2024-05-14 14:40] VITALS: BP 133/87; PULSE 87; RESP 16; TEMP 36.4; O2SAT 100
--- NOTE | 2024-05-14 14:44 | ED.URI ---
HPI - URI/Sore Throat General Chief Complaint: Upper Respiratory Infection Stated Complaint: Sinus infection Time Seen by Provider: 05/14/24 14:45 Source: patient and RN notes reviewed Mode of arrival: ambulatory Limitations: no limitations History of Present Illness HPI Narrative: 53-year-old male presented for complaint of headache, sinus pressure/congestion. Onset 4 days. Reports headache to the forehead. Rates throat pain and headache 8/10. Denies known sick contacts. Taking Mucinex and ibuprofen for symptoms. Denies sob, wheezing, n/v/d. MD elicited complaint: cough Related Data Home Medications Medication Instructions Recorded Confirmed fexofenadine-pseudoephedrine ER 1 tablet PO QAM 11/03/19 12/05/22 180 mg-240 mg tablet,ext.release 24 hr (Daya-D 24 Hour) albuterol sulfate 90 mcg/actuation 1 puff inhalation Q4H shortness of 05/14/24 aerosol inhaler breath or wheezing Allergies Allergy/AdvReac Type Severity Reaction Status Date / Time adhesive tape Allergy Mild Rash Verified 05/14/24 14:45 Review of Systems Review of Systems: CONSTITUTIONAL: Denies malaise, chills, sweats, fever EYES: Denies visual changes, redness, or discharge ENT: Reports rhinorrhea, congestion, sinus pain, otalgia, sore throat CARDIOVASCULAR: Denies chest pain, palpitations, edema RESPIRATORY: Reports cough, post nasal drainage. Denies dyspnea GASTROINTESTINAL: Denies abdominal pain, nausea, vomiting, diarrhea SKIN: Denies rash or itching MUSCULOSKELETAL: Denies myalgia NEUROLOGIC: Reports headache PMFSH Past Medical History Medical History Asthma Hiatal hernia Repaired in 2013 at [facility]. Mild persistent asthma Surgical History Surgical History H/O sinus surgery 2011. History of repair of hiatal hernia Laparoscopic Melvina fundoplication performed at [facility] in 2013. Family History Family History Mother Breast cancer Father Bladder cancer Diverticulitis Sibling Timo syndrome Sibling Diverticulitis Sibling Diverticulitis Sibling Diverticulitis Social History Social History Social History: Primary care physician: Dr. Anay Dawn Smoking status: Never smoker Second hand tobacco smoke exposure: No Alcohol intake: current Drinks per week: 4 Alcohol use details: BEERS Substance use: never Substance use type: does not use Living arrangements: with family Additional living arrangements comments: His and 2 daughters aged 14 and 10. 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 Gender identity (if verbalized by the patient): Male Spiritual care concerns: No Agree to blood products: Yes Exam Narrative: GENERAL: Mildly Ill-appearing, nontoxic no acute distress. EYES: PERRLA, conjunctivae clear ENT: Mucous membranes moist. TMs pearly doan with dull light reflex bilaterally; no tragal tenderness. Oropharynx erythematous. Tonsils not enlarged without lesions or exudate, no drooling, no hoarseness, no trismus, uvula midline. No tripod positioning, muffled voice, soft palate or pharyngeal wall bulging NECK: Supple. No lymphadenopathy CHEST: Clear to auscultation, breath sounds equal. No wheezing, rhonchi, rales, or stridor. No respiratory distress, speaks in full sentences. HEART: Regular rate and rhythm. No murmur heard. SKIN: Warm, dry, no rash. NEURO: Alert and oriented x3. PSYCH: Normal mood and affect Course Course Emergency Course: Patient is aware of diagnosis, understands and agrees to treatment plan. Anticipatory guidance given. Patient agrees to follow-up as directed and is aware of reasons to seek car
[2024-05-14 15:02] LABS: EDSTREPNEGPOS1 Negative
[2024-05-14 15:11] LABS: EDINFLUASCREEN Negative; EDINFLUBSCREEN Negative
== END 2024-05-14 15:30 | disposition home or self-care (01) ==
PROVIDERS: Emergency Provider Nurse Practitioner Family; PCP Family Medicine
DX: J06.9 Acute upper respiratory infection, unspecified (principal); J45.909 Unspecified asthma, uncomplicated; Z20.822 Contact with and (suspected) exposure to COVID-19
CPT/HCPCS: 87081; 87426; 87804; 87880; 99213; G0463

== ENCOUNTER 2024-12-11 11:36 | Outpatient (CLI) | payer BC, SELFPAY ==
--- NOTE | ~2024-12-11 | XR_ITS ---
Right Knee Technique: AP and lateral views were obtained. Clinical History: Pain Findings: No fracture or dislocation is seen. Osseous alignment is anatomic. Joint spaces are preserv ed without degenerative or erosive change. Soft tissues are unremarkable. No joint effusion is seen. Impression: Unremarkable right knee radiographs. Reviewed, dictated and finalized at location . Impression: Unremarkable right knee radiographs.
--- NOTE | ~2024-12-11 | XR_ITS ---
Left Knee Technique: AP and lateral views were obtained. Clinical History: Pain Findings: No fracture or dislocation is seen. Osseous alignment is anatomic. Joint spaces are preserv ed without degenerative or erosive change. Soft tissues are unremarkable. No joint effusion is seen. Impression: Unremarkable left knee radiographs. Reviewed, dictated and finalized at location . Impression: Unremarkable left knee radiographs.
== END 2024-12-11 11:37 | disposition home or self-care (01) ==
LOC: MICIMG 11:38
PROVIDERS: PCP Family Medicine; Visit Provider Student in an Organized Health Care Education/Training Program
DX: M25.561 Pain in right knee (principal); M25.562 Pain in left knee
CPT/HCPCS: 73560

== ENCOUNTER 2025-05-17 11:47 | Outpatient (CLI) | payer BC, SELFPAY ==
--- NOTE | ~2025-05-17 | MR_ITS ---
EXAMINATION: MR brain IAC wo/w con DATE: 05/17/2025 12:36 INDICATION: Dizziness and giddiness. TECHNIQUE: Magnetic resonance imaging (MRI) of the brain, brainstem, and internal auditory canals was performed without and with 20 mL MultiHance intravenous contrast. COMPARISON: None. FINDINGS: There is no intracranial hemorrhage, acute infarction, or abnormal intracranial mass lesion. The ventricles are normal in size. There is mucosal thickening in the paranasal sinuses. The orbits are normal. There is a trace left mastoid effusion. The internal auditory canals, inner ears, and tympanic cavities are normal. IMPRESSION: 1. Normal brain. Reviewed, dictated and finalized at location E. IMPRESSION: 1. Normal brain.
== END 2025-05-17 11:48 | disposition home or self-care (01) ==
LOC: MICIMG 11:47
PROVIDERS: PCP Family Medicine; Visit Provider Student in an Organized Health Care Education/Training Program
DX: R42 Dizziness and giddiness (principal); R29.898 Other symptoms and signs involving the musculoskeletal system
CPT/HCPCS: 70553; A9577

== ENCOUNTER 2025-05-18 09:11 | Outpatient (CLI) | payer BC, SELFPAY ==
--- NOTE | 2025-05-25 12:29 | WPDHOLTEREM ---
Holter/Event Monitor Holter/Event Monitor Date of procedure: 05/18/25 Holter/Event Procedure: 3-7 Day Holter Monitor Indications: Palpitations Conclusion: 1. 3 days holter monitor on 05/18/25. 2. Underlying rhythm is sinus rhythm. HR range 51-151 bpm; average HR 88 bpm. 3. There are rare premature supraventricular complexes. No supraventricular tachycardia. 4. There are rare premature ventricular complexes and rare ventricular couplets. No ventricular tachycardia. 5. No significant pauses greater than 3 seconds. 6. Patient reports 1 episode of symptom of irregular beats which demonstrates sinus rhythm at 93 bpm.
== END 2025-05-18 09:12 | disposition home or self-care (01) ==
PROVIDERS: PCP Family Medicine; Visit Provider Student in an Organized Health Care Education/Training Program
DX: R00.2 Palpitations (principal)
CPT/HCPCS: 93242

== ENCOUNTER 2025-06-04 00:12 | Emergency (ER) | payer BC, SELFPAY ==
[2025-06-04] VITALS (27 sets, daily range): BP systolic 123–154; BP diastolic 68–97; PULSE 88–110; RESP 14–26; TEMP 35.4–36.4; O2SAT 93–100
--- NOTE | ~2025-06-04 | CT_ITS ---
CT HEAD NON-CONTRAST Clinical History: AMS Comparison: Brain MRI 05/17/2025 Technique: Unenhanced axial images skull base to vertex Coronal, sagittal reformats CT images acquired with automatic exposure control for dose reduction DLP: 332 mGy-cm Findings: Sulci, ventricles: Unremarkable. No intracerebral hemorrhage. No evidence acute territorial infarct. No mass effect, midline shift. Bony calvarium intact. Visualized paranasal sinuses: Mild scattered fluid. Mastoid air cells: Clear. IMPRESSION: 1. No acute intracranial findings. Reviewed, dictated and finalized at location R.
--- NOTE | ~2025-06-04 | XR_ITS ---
Examination: XR chest 1V portable Clinical History: unknown cause altered mental status Comparison: None Technique: Portable AP Findings: Heart size normal. Lungs clear. No acute bony abnormality. IMPRESSION: 1. No acute cardiopulmonary findings given portable technique. Reviewed, dictated and finalized at location R.
--- NOTE | ~2025-06-04 | CT_ITS ---
EXAMINATION: CTA brain carotid DATE: 06/04/2025 00:48 INDICATION: Altered mental status. TECHNIQUE: Computed tomographic angiography (CTA) of the head was performed with 100 mL Omnipaque-350 intravenous contrast. CTA of the neck was performed with intravenous contrast. Automated exposure control and iterative reconstruction technique were employed. The dose-length product was 1171.75 mGy-cm. Maximum intensity projection and volume rendered 3D-reconstructions were created by the technologist on a separate workstation. COMPARISON: Head CT 06/04/2025 FINDINGS: HEAD CTA: There is no intracranial hemorrhage, acute infarction, or abnormal intracranial mass lesion. The ventricles are normal in size. There is mucosal thickening in the paranasal sinuses. The orbits are normal. The mastoid air cells are normal. Left vertebral artery is dominant. There is no significant stenosis of basilar artery or the posterior cerebral arteries. The posterior communicating arteries are normal. There is no significant stenosis of intracranial internal carotid arteries or anterior or middle cerebral arteries. Anterior communicating artery is normal. There is no aneurysm. NECK CTA: There are no pathologically enlarged lymph nodes. There is no significant stenosis of the vertebral arteries. There is no visible plaque in the proximal internal carotid arteries. There is 0% stenosis of the proximal right internal carotid artery relative to normal distal artery lumen diameter (NASCET criteria). There is 0% stenosis of the proximal left internal carotid artery relative to normal distal artery lumen diameter. There is mild cervical spondylosis. IMPRESSION: 1. Normal brain. 2. No aneurysm or significant intracranial arterial stenosis. 3. 0% stenosis of the proximal internal carotid arteries relative to normal distal artery lumen diameters (NASCET criteria). Reviewed, dictated and finalized at location E. IMPRESSION: 1. Normal brain. 2. No aneurysm or significant intracranial arterial stenosis. 3. 0% stenosis of the proximal internal carotid arteries relative to normal dis dustin artery lumen diameters (NASCET criteria).
--- OUTSIDE RECORDS SUMMARY | 2025-06-04 00:15 | XMS_ITS | Clinical Summary ---
Author Organization [facility] [address] [place] [address] Care Team Providers Care Refueling Ramp Supervisor Name Role Phone Anay Dawn MD Primary Care Provider [phone] Allergies Active Allergy Reactions Criticality Noted Date Comments Latex Other (See comments) 06/01/2025 Skin irritation Medications albuterol HFA (PROVENTIL HFA,VENTOLIN HFA,PROAIR HFA) 90 mcg/actuation inhaler INHALE 1 PUFF BY MOUTH EVERY 4 HOURS FOR SHORTNESS OF BREATH OR WHEEZING Active fexofenadine-ps eudoephedrine (MAHNAZ-D 24) 180-240 mg per 24 hr tablet 1 tablet 0 Active Active Problems Problem Noted Date Diagnosed Date Sensation of fullness in left ear 06/01/2025 Assessment & Plan (06/01/2025 8:54 PM CDT): Need to consider the possibility of hydrops. No abnormal findings on his exam however. Dizziness and giddiness 06/01/2025 Assessment & Plan (06/01/2025 8:55 PM CDT): I think it is a good idea that he follow through with his cardiology appointment and I discuss that with him. I wonder if this could be due to an arrhythmia. We are going to go ahead and have him get a VNG also to rule out inner ear pathology and I talked with him about the rationale for that. He would like to go ahead and pursue this. Chronic pansinusitis 06/01/2025 Assessment & Plan (06/01/2025 8:54 PM CDT): I do not think that his sinus problems are causing any of his current issues. We talked about that. Could consider doing a sinus CT scan if he wishes to find out if there is anything further that can be done for his sinus problems. He will let me know if he wants to pursue that. Achalasia of esophagus 09/08/2013 Encounters Date Type Department Care Team Description 06/01/2025 9:30 AM CDT Office Visit [facility] [address] [place] [phone] David Aden MD Sensation of fullness in left ear (Primary Dx); Dizziness and giddiness; Chronic pansinusitis 06/01/2025 9:00 AM CDT Procedure visit [facility] [address] [place] [phone] Madison Lin Au.D. Sensorineural hearing loss (SNHL), bilateral (Primary Dx); Dizziness and giddiness from Last 3 Months Surgical History Surgery Date Site/Laterality Comments SINUS SURGERY 09/09/2002 - 09/08/2003 ESOPHAGECTOMY 09/09/2004 - 09/08/2005 Medical History Medical History Date Comments Allergies Asthma Sinusitis HL (hearing loss) Tinnitus Dizziness Nasal discharge Nasal congestion Irregular heart beat Headache Family History Medical History Relation Name Comments Aneurysm Father Cancer Father Cancer Mother Relation Name Status Comments Father Mother Social History Tobacco Use Types Packs/Day Years Used Date Smoking Tobacco: Former Cigarettes Tobacco Cessation:Counseling Given: Not Answered Sex and Gender Information Value Date Recorded Sex Assigned at Not on file Legal 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 Gender Identity Not on file Sexual Orientation Not on file Obstetrics History Last Filed Vital Signs Vital Sign Reading Time Taken Comments Blood Pressure 124/79 11/16/2014 9:00 AM CDT Pulse 77 11/17/2013 4:11 PM CDT Temperature - - Respiratory Rate 18 06/01/2025 9:35 AM CDT Oxygen Saturation 98% 11/17/2013 4:11 PM CDT Inhaled Oxygen Concentration - - Weight 52.6 kg (116 lb) 06/01/2025 9:35 AM CDT Height 185.4 cm (6' 1) 06/01/2025 9:35 AM CDT Body Mass Index 15.3 06/01/2025 9:35 AM CDT Plan of Treatment Health Maintenance Due Date Last Done Comments Colon Cancer Screening-Colonoscopy 1972 Depression Screening 1972 Hepatitis C Screening 1972 Prostate Cancer Screening-PSA 1972 DTaP/Tdap/Td Vaccine (1 - Tdap) 1983 Hepatitis B Screening 1990 Regular Well Visit/Exam 18-64 1990 Pneumococcal vaccine <65 (1 of 2 - PCV) 1991 Zoster Vaccine (1 of 2) 2022 Influenza Vaccine (#1) 2025 Insurance [employer] Care Teams Refueling Ramp Supervisor Relationship Specialty Start Date End Date Anay Dawn MD [address] [place] [address] [address] DIAS B [address] [address] PCP - General Family Medicine 9/4/25
--- NOTE | 2025-06-04 00:16 | ECG_ITS ---
Test Date: 2025-06-04 00:20:50 Measurements Intervals [place] Rate: 95 P: 33 PA: 176 QRS: 31 QRSD: 98 T: 11 QT: 331 QTc: 417 Interpretive Statements SINUS RHYTHM NORMAL ELECTROCARDIOGRAM No previous ECG available for comparison Electronically Signed On 06-04-2025 07:40:20 CDT by Vijay Murphy M.D.
[2025-06-04 00:43] LABS: Ammonia < 9 umol/L (9-30)
[2025-06-04 00:47] LABS: Alanine Aminotransferase 35 U/L (6-50); Albumin Level 4.7 g/dL (3.5-5.1); Alkaline Phosphatase 82 U/L (38-126); Anion Gap 11 mmol/L (4-12); Aspartate Amino Transferase 34 U/L (17-59); Bilirubin,Total 0.5 mg/dL (0.2-1.3); Blood Urea Nitrogen 19 mg/dL (9-20); Calcium 8.8 mg/dL (8.4-10.2); Carbon Dioxide 24 mmol/L (22-30); Chloride 104 mmol/L (98-107); Estimated CRCL calculation 76 ml/min; Estimated Glomerular Filt Rate > 60; Glucose 154 mg/dL (65-110); Potassium 4.2 mmol/L (3.4-5.0); Sodium 139 mmol/L (137-145); Total Protein 7.4 g/dL (6.3-8.2)
[2025-06-04 00:51] LABS: INR 0.9; Partial Thromboplastin Time 27.9 Seconds (22.3-36.8); Prothrombin Time 12.1 Seconds (11.1-14.7)
[2025-06-04 00:54] LABS: Add Urine Microscopic? NO; Appearance Urine Clear (Clear); Glucose Urine UA Negative (Negative); Leukocyte Esterase Ur Negative LEU/UL (Negative); Nitrate Urine Negative (Negative); Specific Grav Ur 1.006 (1.001-1.035)
[2025-06-04 00:57] LABS: Hematocrit 43.7 % (42.0-52.0); Hemoglobin 14.6 g/dL (14.0-18.0); Immature Granulocyte Percent A 6.4 % (0-0.5); Lymphocytes Absolute Auto 1.71 K/mm3 (0.9-3.2); Mean Corpuscular HGB Conc 33.4 g/dl (32-36); Mean Corpuscular Hemoglobin 28.6 pg (26-34); Mean Corpuscular Volume 85.5 fl (80-100); Nucleated Red Blood Cells Absolute Auto 0.000 K/mm3 (0.0-0.012); Nucleated Red Blood Cells Perc 0.0 % (0.0-0.2); Platelet Count Result 228 k/mm3 (150-375); Red Blood Count 5.11 M/mm3 (4.6-6.20); White Blood Count 10.6 K/mm3 (4.5-10.0)
[2025-06-04 00:58] LABS: Troponin I < 0.012 ng/mL (0.000-0.034)
[2025-06-04 01:12] LABS: Cannabinoid Screen Urine Negative (Negative)
--- NOTE | 2025-06-04 01:13 | ECG_ITS ---
Test Date: 2025-06-04 01:19:08 Measurements Intervals [place] Rate: 94 P: 32 WV: 170 QRS: 20 QRSD: 89 T: 6 QT: 337 QTc: 422 Interpretive Statements SINUS RHYTHM NORMAL ELECTROCARDIOGRAM Compared to ECG 06/04/2025 00:20:50 No significant changes Electronically Signed On 06-04-2025 07:40:47 CDT by Vijay Murphy M.D.
--- NOTE | 2025-06-04 01:29 | ED.AMS ---
HPI - Altered Mental Status General Chief Complaint: Suspected CVA <Maria L Morales APRN - Last Filed: 06/04/25 03:33> Stated Complaint: unresponsive <Maria L Morales APRN - Last Filed: 06/04/25 03:33> Time Seen by Provider: 06/04/25 00:18 <Maria L Morales APRN - Last Filed: 06/04/25 03:33> History of Present Illness HPI narrative: Patient is a 55-year-old male who presents to the ER with altered mental status. His significant other reports he was out drinking with his friend when they called her because he was slowly becoming unresponsive. Patient presents to the ER with responsiveness to painful stimulation. He is A&Ox 0 at the time of arrival. Patient's significant other reports she has never seen him this altered before. His significant other reports he has had multiple medical workups recently. Patient's reports he has no significant medical history. <Maria L Morales APRN - Last Filed: 06/04/25 03:33> Related Data Home Medications: Home Medications ?Medication ?Instructions ?Recorded ?Confirmed ?Last Taken ?Type fexofenadine-pseudoephedrine ER 1 tablet PO QAM 11/03/19 05/04/25 09/15/20 History 180 mg-240 mg tablet,ext.release 24 hr (Daya-D 24 Hour) <Maria L Morales APRN - Last Filed: 06/04/25 03:33> Allergies/Adverse Reactions: Allergies Allergy/AdvReac Type Severity Reaction Status Date / Time adhesive tape Allergy Mild Rash Verified 06/04/25 02:36 <Maria L Morales APRN - Last Filed: 06/04/25 03:33> Review of Systems Review of Systems: All systems reviewed & are unremarkable except as noted in HPI and below <Maria L Morales APRN - Last Filed: 06/04/25 03:33> [facility] Past Medical History Medical History: Medical History Mild persistent asthma Hiatal hernia Repaired in 2013 at [facility]. Asthma <Maria L Morales APRN - Last Filed: 06/04/25 03:33> Surgical History Surgical History: Surgical History History of repair of hiatal hernia Laparoscopic Melvina fundoplication performed at [facility] in 2013. H/O sinus surgery 2011. <Maria L Morales APRN - Last Filed: 06/04/25 03:33> Family History Family History: Family History Mother Breast cancer Father Bladder cancer Diverticulitis Sibling Timo syndrome Sibling Diverticulitis Sibling Diverticulitis Sibling Diverticulitis <Maria L Morales APRN - Last Filed: 06/04/25 03:33> Social History Social History: Social History Social History: Primary care physician: Dr. Anay Dawn Smoking status: Never smoker Second hand tobacco smoke exposure: No Alcohol intake: current Drinks per week: 4 Alcohol use details: BEERS Substance use: never Substance use type: does not use Living arrangements: with family Additional living arrangements comments: His and 2 daughters aged 14 and 10. 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 Gender identity (if verbalized by the patient): Male Spiritual care concerns: No Agree to blood products: Yes <Maria L Morales APRN - Last Filed: 06/04/25 03:33> Exam Narrative: GENERAL: Ill appearing, well-nourished, toxic, in acute distress. HEAD: Normocephalic, atraumatic. NECK: Supple. No adenopathy, no masses. PERRLA RESPIRATORY: Airway patent, respirations irregular and shallow. Clear to auscultation bilaterally, no rales, rhonchi, wheezing. CARDIOVASCULAR: Regular rate and rhythm without murmurs, rubs, or gallops. Peripheral pulses 2+ and equal bilaterally. ABDOMINAL: Soft, nontender, nondistended. Normoactive BS. MUSCULOSKELETAL: Moves all extremities. SKIN: Warm, dry, pallor. No rashes. NEURO: A&O X 0 PSYCHIATRIC: No interaction <Maria L Morales APRN - Last Filed: 06/04/25 03:33> Course Course Emergency Course: Patient care signed over by previous provider pending re-evaluations after sobriety. Patient much more awake answering all questions acting appropriately. Ambulatory with steady gait. No new symptoms and he is hemodynamically stable. at bedside comfortable with taking him home at this time for further sobriety and will return with any emergencies. Safe for discharge home at this time and has regular PCP and Cardiology follow-up. <Franklyn Couch MD - Last Filed: 06/04/25 05:32> CLINICAL MOLECULAR GENETICIST/PA Physician Supervision This visit was performed by both a physician and an APC. I performed all aspects of the MDM as documented. <Franklyn Couch MD - Last Filed: 06/04/25 05:32> Vital Signs Vital signs: Vital Signs Temperature 35.4 C L 06/04/25 00:17 Pulse Rate 96 06/04/25 00:17 Respiratory Rate 24 H 06/04/25 00:17 Blood Pressure 123/83 06/04/25 00:17 Pulse Oximetry 100 06/04/25 00:17 Oxygen Delivery Room Air 06/04/25 00:17 Temperature 35.4 C L 06/04/25 00:17 Pulse Rate 94 06/04/25 03:37 Respiratory Rate 21 H 06/04/25 03:37 Blood Pressure 143/86 H 06/04/25 03:37 Pulse Oximetry 100 06/04/25 03:37 Oxygen Delivery Room Air 06/04/25 01:36 <Maria L Morales APRN - Last Filed: 06/04/25 03:33> Vital Signs Temperature 35.4 C L 06/04/25 00:17 Pulse Rate 96 06/04/25 00:17 Respiratory Rate 24 H 06/04/25 00:17 Blood Pressure 123/83 06/04/25 00:17 Pulse Oximetry 100 06/04/25 00:17 Oxygen Delivery Room Air 06/04/25 00:17 Temperature 35.4 C L 06/04/25 00:17 Pulse Rate 94 06/04/25 03:37 Respiratory Rate 21 H 06/04/25 03:37 Blood Pressure 143/86 H 06/04/25 03:37 Pulse Oximetry 100 06/04/25 03:37 Oxygen Delivery Room Air 06/04/25 01:36 <Franklyn Couch MD - Last Filed: 06/04/25 05:32> MDM - Altered Mental Status MDM Narrative Medical decision making narrative: Patient is a 55-year-old male who presents to the ER with altered mental status. His significant other reports he was out drinking with his friend when they called her because he was slowly becoming unresponsive. Patient presents to the ER with responsiveness to painful stimulation. He is A&Ox 0 at the time of arrival. Patient's significant other reports she has never seen him this altered before. His significant other reports he has had multiple medical workups recently. Patient's reports he has no significant medical history. 0200-Upon reexamination patient is alert and oriented x4. He is complaining of intermittent chest pain that has been going on for past 2 weeks. Patient reports he had a Holter monitor and echocardiogram performed. He reports he meets with his real estate services administrator on Saturday, in 2 days. Labs Ordered: CBC, CMP, ammonia, ethanol, PTT, INR, lactic acid, troponin, UA, UDS Imaging Ordered: CTA head neck, CT brain, chest x-ray Medications Ordered: D5 LR at to an hour, Pepcid IV, GI cocktail Results: Patient's CBC indicates white blood cell count of 10.6. His coags indicate no acute abnormalities. Patient's chemistry indicates a glucose of 154. His ammonia level was negative. Patient's lactic acid level was 1.6. His urinalysis indicates no acute abnormalities. Patient's UDS was negative. His ethyl alcohol level was 264. Diagnosis: Acute alcohol intoxication Patient Education/Shared MDM: Results of lab work and imaging shared with patient and his . He endorses improvement of symptoms following GI cocktail medication administration. Patient strongly advised to maintain hydration status upon discharge and follow-up with his real estate services administrator as planned. He may take Pepcid as needed for GERD symptoms over the weekend. Pt will be discharged home with no new prescriptions. Strict return precautions provided. Patient verbalized understanding and is in agreement with plan. Vital signs stable at time of discharge. All questions answered. CRITICAL CARE ADDENDUM: Indication: Altered mental status Time type: intermittent I provided a total of 45 minutes of critical care excluding separately billable procedures. This includes time w/ initial bedside evaluation, reviewing old records, review of testing done while under my care, discussion w/ the family, nurses, delivery consultant and guiding the patient?s care while in the emergency department. Approximate time distribution: 5 minutes ? Initial evaluation, d/w involved parties, attempting to gather old records. 10 minutes ? Documenting medical record 10 minutes ? Review of results (EKGs, labs, imaging) 10 minutes ? Serial repeat bedside evaluation 10 minutes ? Discussing case with multiple providers Please see main chart for details. Excludes separately billable procedures. <Maria L Morales, CARE MANAGEMENT ASSOCIATE - Last Filed: 06/04/25 03:33> Differential Diagnosis Differential diagnosis: Likely alcoholic intoxication, altered mental status, hyponatremia, subarachnoid hemorrhage and sepsis <Maria L Morales CARE MANAGEMENT ASSOCIATE - Last Filed: 06/04/25 03:33> Lab Data Attestation: I reviewed the patient's lab results. <Maria L Morales CARE MANAGEMENT ASSOCIATE - Last Filed: 06/04/25 03:33> Result diagrams: 06/04/25 00:27 06/04/25 00:27 <Maria L Morales, CARE MANAGEMENT ASSOCIATE - Last Filed: 06/04/25 03:33> Labs: Lab Results 06/04/25 06/04/25 06/04/25 Range/Units 00:27 00:49 03:23 WBC 10.6 H (4.5-10.0) K/mm3 RBC 5.11 (4.6-6.20) M/mm3 Hgb 14.6 (14.0-18.0) g/dL Hct 43.7 (42.0-52.0) % MCV 85.5 (80-100) fl MCH 28.6 (26-34) pg MCHC 33.4 (32-36) g/dl RDW 11.9 (11.5-14.5) % Plt Count 228 (150-375) k/mm3 MPV 9.3 (7.4-10.4) fl Immature Gran % (Auto) 6.4 H (0-0.5) % Neut % (Auto) 70.3 (45.5-73.1) % Lymph % (Auto) 16.2 L (18.3-44.2) % [place] % (Auto) 3.8 (2.6-8.5) % Eos % (Auto) 3.0 (0-4.4) % Baso % (Auto) 0.3 (0.2-1.2) % Lymph # (Auto) 1.71 (0.9-3.2) K/mm3 [place] # (Auto) 0.4 (0.1-0.6) K/mm3 Eos # (Auto) 0.3 (0-0.3) K/mm3 Baso # (Auto) 0.0 (0.0-0.1) K/mm3 Abs Immat Gran (auto) 0.68 H (0.00-0.031) K/mm3 Absolute Neuts (auto) 7.4 H (1.3-6.7) K/mm3 Absolute Nucleated RBC 0.000 (0.0-0.012) K/mm3 Nucleated RBC % 0.0 (0.0-0.2) % PT 12.1 (11.1-14.7) Seconds INR 0.9 APTT 27.9 (22.3-36.8) Seconds Sodium 139 (137-145) mmol/L Potassium 4.2 (3.4-5.0) mmol/L Chloride 104 (98-107) mmol/L Carbon Dioxide 24 (22-30) mmol/L Anion Gap 11 (4-12) mmol/L BUN 19 (9-20) mg/dL Creatinine 1.13 (0.7-1.3) mg/dL Estim Creat Clear Calc 76 ml/min Estimated GFR > 60 (59 - ) Glucose 154 H (65-110) mg/dL Lactic Acid 1.6 (0.7-2.0) mmol/L Calcium 8.8 (8.4-10.2) mg/dL Total Bilirubin 0.5 (0.2-1.3) mg/dL AST 34 (17-59) U/L ALT 35 (6-50) U/L Alkaline Phosphatase 82 (38-126) U/L Ammonia < 9 L (9-30) umol/L Troponin I < 0.012 < 0.012 (0.000-0.034) ng/mL Total Protein 7.4 (6.3-8.2) g/dL Albumin 4.7 (3.5-5.1) g/dL Urine Color Yellow (Yellow) Urine Appearance Clear (Clear) Urine pH 5.5 (5.0-9.0) Ur Specific [place] 1.006 (1.001-1.035) Urine Protein Negative (Negative) mg/dL Urine Glucose (UA) Negative (Negative) mg/dL Urine Ketones Negative (Negative) mg/dL Ur Blood (Man) Negative (Negative) Urine Nitrate Negative (Negative) Urine Bilirubin Negative (Negative) Urine Urobilinogen 0.2 (<2.0) mg/dL Leukocyte Esterase Rfl Negative (Negative) ROGER/UL Urine Opiates Screen Negative (Negative) Urine Methadone Screen Negative (Negative) Ur Barbiturates Screen Negative (Negative) Ur Phencyclidine Scrn Negative (Negative) Ur Amphetamine Screen Negative (Negative) U Benzodiazepines Scrn Negative (Negative) Urine Cocaine Screen Negative (Negative) U Cannabinoids Screen Negative (Negative) Ethyl Alcohol 264 (<10) mg/dL <Maria L Morales, CARE MANAGEMENT ASSOCIATE - Last Filed: 06/04/25 03:33> Lab Results 06/04/25 06/04/25 06/04/25 Range/Units 00:27 00:49 03:23 WBC 10.6 H (4.5-10.0) K/mm3 RBC 5.11 (4.6-6.20) M/mm3 Hgb 14.6 (14.0-18.0) g/dL Hct 43.7 (42.0-52.0) % MCV 85.5 (80-100) fl MCH 28.6 (26-34) pg MCHC 33.4 (32-36) g/dl RDW 11.9 (11.5-14.5) % Plt Count 228 (150-375) k/mm3 MPV 9.3 (7.4-10.4) fl Immature Gran % (Auto) 6.4 H (0-0.5) % Neut % (Auto) 70.3 (45.5-73.1) % Lymph % (Auto) 16.2 L (18.3-44.2) % [place] % (Auto) 3.8 (2.6-8.5) % Eos % (Auto) 3.0 (0-4.4) % Baso % (Auto) 0.3 (0.2-1.2) % Lymph # (Auto) 1.71 (0.9-3.2) K/mm3 [place] # (Auto) 0.4 (0.1-0.6) K/mm3 Eos # (Auto) 0.3 (0-0.3) K/mm3 Baso # (Auto) 0.0 (0.0-0.1) K/mm3 Abs Immat Gran (auto) 0.68 H (0.00-0.031) K/mm3 Absolute Neuts (auto) 7.4 H (1.3-6.7) K/mm3 Absolute Nucleated RBC 0.000 (0.0-0.012) K/mm3 Nucleated RBC % 0.0 (0.0-0.2) % PT 12.1 (11.1-14.7) Seconds INR 0.9 APTT 27.9 (22.3-36.8) Seconds Sodium 139 (137-145) mmol/L Potassium 4.2 (3.4-5.0) mmol/L Chloride 104 (98-107) mmol/L Carbon Dioxide 24 (22-30) mmol/L Anion Gap 11 (4-12) mmol/L BUN 19 (9-20) mg/dL Creatinine 1.13 (0.7-1.3) mg/dL Estim Creat Clear Calc 76 ml/min Estimated GFR > 60 (59 - ) Glucose 154 H (65-110) mg/dL Lactic Acid 1.6 (0.7-2.0) mmol/L Calcium 8.8 (8.4-10.2) mg/dL Total Bilirubin 0.5 (0.2-1.3) mg/dL AST 34 (17-59) U/L ALT 35 (6-50) U/L Alkaline Phosphatase 82 (38-126) U/L Ammonia < 9 L (9-30) umol/L Troponin I < 0.012 < 0.012 (0.000-0.034) ng/mL Total Protein 7.4 (6.3-8.2) g/dL Albumin 4.7 (3.5-5.1) g/dL Urine Color Yellow (Yellow) Urine Appearance Clear (Clear) Urine pH 5.5 (5.0-9.0) Ur Specific [place] 1.006 (1.001-1.035) Urine Protein Negative (Negative) mg/dL Urine Glucose (UA) Negative (Negative) mg/dL Urine Ketones Negative (Negative) mg/dL Ur Blood (Man) Negative (Negative) Urine Nitrate Negative (Negative) Urine Bilirubin Negative (Negative) Urine Urobilinogen 0.2 (<2.0) mg/dL Leukocyte Esterase Rfl Negative (Negative) ROGER/UL Urine Opiates Screen Negative (Negative) Urine Methadone Screen Negative (Negative) Ur Barbiturates Screen Negative (Negative) Ur Phencyclidine Scrn Negative (Negative) Ur Amphetamine Screen Negative (Negative) U Benzodiazepines Scrn Negative (Negative) Urine Cocaine Screen Negative (Negative) U Cannabinoids Screen Negative (Negative) Ethyl Alcohol 264 (<10) mg/dL <Franklyn Couch MD - Last Filed: 06/04/25 05:32> Imaging Data Attestation: I personally reviewed and interpreted this imaging study as follows: <Maria L Morales APRN - Last Filed: 06/04/25 03:33> Radiologist's impression: Patient's CTA head indicates accounting for limitations with motion artifact, negative intracranial CTA examination. No large vessel occlusion or critical stenosis. Incident and been posterior communicating arteries noted serving both posterior cerebral arteries no abnormal parenchymal enhancement. Patient's CTA neck indicates evaluation of the internal carotid arteries is limited by motion/swallowing artifact and dental hardware. No evidence for occlusion. No significant stenosis of the carotid bifurcations. The common carotid arteries are patent. The vertebral arteries are patent bilaterally with the left vertebral artery minimal dominant. No focal stenosis or occlusion. The aortic arch is patent. No dissection or aneurysm. There is a normal branching pattern of the proximal great vessels without significant ostial stenosis. Patient's CT head indicates there is no definitive intracranial hemorrhage. No significant mass effect or midline shift. No cortical infarct. No skull fracture. Mucosal thickening involving several ethmoid air cells. No significant effusions. The mastoid air cells are well aerated. <Maria L Morales APRN - Last Filed: 06/04/25 03:33> Critical Care Time Critical Care Time Critical Care Time: Yes <Maria L Morales APRN - Last Filed: 06/04/25 03:33> Total Critical Care Time: 45 <Maria L Morales APRN - Last Filed: 06/04/25 03:33> Discharge Plan Discharge Clinical Impression: Alcoholic intoxication, Altered mental status <Maria L Morales APRN - Last Filed: 06/04/25 03:33> Patient Disposition: Home <Maria L Morales APRN - Last Filed: 06/04/25 03:33> Condition: Stable <Maria L Morales APRN - Last Filed: 06/04/25 03:33> Instructions: Antibiotic Form <Maria L Morales APRN - Last Filed: 06/04/25 03:33> Patient Language: Uzbek <Maria L Morales APRN - Last Filed: 06/04/25 03:33> Prescriptions: No Action amoxicillin-pot clavulanate 875-125 mg tablet 1 tablet PO BID Qty: 20 0RF fexofenadine-pseudoephedrine [Daya-D 24 Hour] 180-240 mg Tablet Extended Release 24 Hr 1 tablet PO QAM fluticasone propion-salmeterol [Wixela Inhub] 250-50 mcg/dose blister with device 1 inh inhalation BID Qty: 60 3RF albuterol sulfate 90 mcg/actuation HFA aerosol inhaler 1 puff INHALATION Q4H Qty: 1 6RF lorazepam 0.5 mg tablet 0.5 mg PO DAILY PRN (Reason: anxiety) Qty: 5 0RF Rx Instructions: Take 30 minutes before procedure <Maria L Morales APRN - Last Filed: 06/04/25 03:33> Follow-up/Referrals: Anay Dawn MD [Primary Care Provider, Family Practice] <Maria L Morales APRN - Last Filed: 06/04/25 03:33>
[2025-06-04] MEDS: DEXTROSE 5%/LACTATED RINGERS 1,000 ML 200 ML IV CONT (01:31)
--- NOTE | 2025-06-04 01:34 | PC.NURSE ---
pt repeating to my heart hurts. EKG preformed. LUIZ Lisa made aware.
--- NOTE | 2025-06-04 02:12 | ECG_ITS ---
Test Date: 2025-06-04 03:19:24 Measurements Intervals [place] Rate: 96 P: 28 NC: 182 QRS: 38 QRSD: 109 T: 46 QT: 332 QTc: 420 Interpretive Statements SINUS RHYTHM NORMAL ELECTROCARDIOGRAM Compared to ECG 06/04/2025 01:19:08 No significant changes Electronically Signed On 06-04-2025 07:42:25 CDT by Vijay Murphy M.D.
[2025-06-04] MEDS: BELLADONNA ALK/PHENOB ELIX 10 ML, MAG HYDROX/ALUMINUM HYD/SIMETH 30 ML, LIDOCAINE 2% VI... PO (02:42)
[2025-06-04] MEDS: FAMOTIDINE 20 MG/2 ML VIAL IV PUSH (02:42)
[2025-06-04 03:57] LABS: Troponin I < 0.012 ng/mL (0.000-0.034)
--- NOTE | 2025-06-04 05:45 | PC.NURSE ---
pt ambulated without assistance. pt tolerated well. pt PO challenge. pt tolerated well.
== END 2025-06-04 06:14 | disposition home or self-care (01) ==
PROVIDERS: Student in an Organized Health Care Education/Training Program; Emergency Provider Registered Nurse; PCP Family Medicine
DX: J45.30 Mild persistent asthma, uncomplicated (principal); F10.129 Alcohol abuse with intoxication, unspecified; Y90.8 Blood alcohol level of 240 mg/100 ml or more; R41.82 Altered mental status, unspecified
CPT/HCPCS: 36415; 70450; 70496; 70498; 71045; 80053; 80307; 81003; 82077; 82140; 82948; 83605; 84484; 85025; 85610; 85730; 93005; 96361; 96374; 99284; A9270; J7121; Q9967

== ENCOUNTER 2025-07-06 09:05 | Outpatient (CLI) | payer BC, SELFPAY ==
--- OUTSIDE RECORDS SUMMARY | 2025-07-06 09:53 | XMS_ITS | Clinical Summary ---
Author Organization [facility] [address] [place] [address] Care Team Providers Care Badger Distiller Operator Name Role Phone Anay Dawn MD Primary Care Provider [phone] Allergies Active Allergy Reactions Criticality Noted Date Comments Latex Other (See comments) 06/01/2025 Skin irritation Medications albuterol HFA (PROVENTIL HFA,VENTOLIN HFA,PROAIR HFA) 90 mcg/actuation inhaler INHALE 1 PUFF BY MOUTH EVERY 4 HOURS FOR SHORTNESS OF BREATH OR WHEEZING Active loratadine (CLARITIN) 10 mg tablet Take 1 tablet (10 mg total) by mouth daily Active cefuroxime (CEFTIN) 250 mg tabletIndicatio ns:Other chronic sinusitis Take 1 tablet (250 mg total) by mouth 2 (two) times a day for 14 days 28 tablet 5 07/12/20 25 Active fexofenadine-ps eudoephedrine (MAHNAZ-D 24) 180-240 mg per 24 hr tablet 1 tablet 0 06/11/20 25 Discontinu ed(Patient Reported) Active Problems Problem Noted Date Diagnosed Date Deviated nasal septum 07/05/2025 Hypertrophy of nasal turbinates 07/05/2025 Nasal obstruction 06/24/2025 Assessment & Plan (06/24/2025 3:41 PM CDT): This has likely due to a severely deviated nasal septum and enlarged inferior turbinates. This was not noticed on his prior exam. Endoscopically it is pretty significant. I think he may benefit from surgery to correct this. I discussed the risk of a septoplasty with and without turbinectomy with the patient. There is a risk of continued nasal obstruction, bleeding, septal perforation, permanent anosmia. Also risk of inadequate correction which could result in continued nasal obstruction symptoms. He and his expressed understanding. They we would like to go ahead and set it up. Sensation of fullness in left ear 06/01/2025 Assessment & Plan (06/01/2025 8:54 PM CDT): Need to consider the possibility of hydrops. No abnormal findings on his exam however. Dizziness and giddiness 06/01/2025 Assessment & Plan (06/24/2025 3:40 PM CDT): I recommend that he continue to pursue his cardiac workup. If that is negative I maybe recommending that he see a neurologist for this. Could be a vestibular migraine. He understands. Assessment & Plan (06/01/2025 8:55 PM CDT): [...] this. Chronic pansinusitis 06/01/2025 Assessment & Plan (06/24/2025 3:42 PM CDT): He does have some pretty significant sinus disease throughout the ethmoids. The maxillary sinuses are also obstructed and there is some thickening of the base of the frontal sinuses. 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 I recommended surgery to address these. I discussed the risk of sinus surgery including the risk of recurrent or persistent disease that may require further revision surgery. There is a risk of orbital injury and PERISHABLE FRUIT INSPECTOR injury which could result in blindness or double vision or brain damage. These risks are quite low. Some risk of permanent anosmia. He understands. He would like to pursue this also. Assessment & Plan (06/01/2025 8:54 PM CDT): [...] Encounters Date Type Department Care Team Description 06/28/2025 Telephone [facility] [address] [place] [phone] Stephy Mari 06/24/2025 9:15 AM CDT Office Visit [facility] [address] [place] [phone] David Aden MD Dizziness and giddiness (Primary Dx); Chronic pansinusitis; Nasal obstruction 06/22/2025 Telephone [facility] [address] [place] [address] [phone] sinus results and recommendations 06/22/2025 Imaging Exam [facility] [address] [place] [address] [phone] David Aden MD Chronic pansinusitis (Primary Dx) 06/11/2025 2:00 PM CDT Telemedicine [facility] [address] [place] [address] [phone] David Aden MD Chronic pansinusitis (Primary Dx); Dizziness and giddiness 06/11/2025 10:00 AM CDT Procedure visit [facility] [address] [place] [address] [phone] Madison Lin Au.D. Dizziness and giddiness (Primary Dx) 06/11/2025 Telephone [facility] [address] [place] [address] [phone] Shannon Jo LPN Question about Claritin D 06/01/2025 9:30 AM CDT Office Visit [facility] [address] [place] [address] [phone] David Aden MD Sensation of fullness in left ear (Primary Dx); Dizziness and giddiness; Chronic pansinusitis 06/01/2025 9:00 AM CDT Procedure visit [facility] [address] [place] [address] [phone] Madison Lin Au.D. Sensorineural hearing loss (SNHL), [...] Years Used Date Smoking Tobacco: Former Cigarettes Smokeless Tobacco: Never Tobacco Cessation:Counseling Given: Not Answered Sex and Gender Information Value Date Recorded Sex Assigned at Not on file Legal Sex Male 11:59 PM RELIGIOUS EDUCATION DIRECTOR Gender Identity Not on file Sexual Orientation Not on file Obstetrics History Last Filed Vital Signs Vital Sign Reading Time Taken Comments Blood Pressure 124/79 11/16/2014 9:00 AM CDT Pulse 77 11/17/2013 4:11 PM CDT Temperature - - Respiratory Rate 18 06/24/2025 9:30 AM CDT Oxygen Saturation 98% 11/17/2013 4:11 PM CDT Inhaled Oxygen Concentration - - Weight 97.5 kg (215 lb) 06/24/2025 9:30 AM CDT Height 185.4 cm (6' 1) 06/24/2025 9:30 AM CDT Body Mass Index 28.37 06/24/2025 9:30 AM CDT Plan of Treatment Upcoming Encounters Date Type Department Care Team (Latest Contact Info) Description 07/26/2025 8:28 AM RELIGIOUS EDUCATION DIRECTOR Hospital Encounter [facility] [place] [address] [place] [address] David Aden MD [address] [place] [address] 07/26/2025 8:28 AM RELIGIOUS EDUCATION DIRECTOR - 07/26/2025 10:07 AM RELIGIOUS EDUCATION DIRECTOR Surgery [facility] [place] [address] [place] [address] David Aden MD [address] [place] [address] BILATERAL ENDOSCOPIC TOTAL ETHMOIDECTOMY, BILATERAL FRONTAL SINUSOTMY, BILATERAL MAXILLARY ANTROSTOMY Scheduled Procedures Name Priority Associated Diagnoses Date/Ti me ENDOSCOPIC SINUS SURGERY. Deviated nasal septum Hypertrophy of nasal turbinates Chronic pansinusitis 07/26/2025 8:28 AM RELIGIOUS EDUCATION DIRECTOR EXCISION INFERIOR TURBINATE. Deviated nasal septum Hypertrophy of nasal turbinates Chronic pansinusitis 07/26/2025 8:28 AM RELIGIOUS EDUCATION DIRECTOR SEPTOPLASTY. Deviated nasal septum Hypertrophy of nasal turbinates Chronic pansinusitis 07/26/2025 8:28 AM RELIGIOUS EDUCATION DIRECTOR Health Maintenance Due Date Last Done Comments Colon Cancer Screening-Colonoscopy 1972 Depression Screening 1972 Hepatitis C Screening 1972 Prostate Cancer Screening-PSA 1972 DTaP/Tdap/Td Vaccine (1 - Tdap) 1983 Hepatitis B Screening 1990 Regular Well Visit/Exam 18-64 1990 Pneumococcal vaccine <65 (1 of 2 - PCV) 1991 Zoster Vaccine (1 of 2) 2022 Influenza Vaccine (#1) 2025 Insurance [facility] ACCESS Care Teams Badger Distiller Operator Relationship Specialty Start Date End Date Anay Dawn MD [address] [place] [address] [address] [place] [address] PCP - General Family Medicine 05/13/25
--- NOTE | 2025-07-20 14:58 | WPDHOMESLEEP ---
Sleep Study - Home Unattended Date of Study: 07/06/25 Ordering Provider: Brandon Moreau DO Interpreting Provider: Virginie Phillip DO Home Sleep Study Type: Watch PAT Height: 1.85 m Weight: 99.79 kg Body Mass Index: 29.0 Neck Circumference (inches): 16 [place]: 11 Reason for Sleep Study Daytime hypersomnia Sleep History The patient is a 55-year-old male that had a sleep study ordered by his international broadcast music librarian for evaluation of sleep apnea. The patient denies awakening from sleep short of breath. He rarely awakens at night with heartburn, belching or cough. He constantly snores loudly enough that others complain. He constantly has trouble sleeping when he has a cold. He denies waking up gasping for air throughout the night. He denies having breathing problems at night observed by himself or others. He denies sweating excessively at night. He occasionally has heart palpitations or irregular heartbeats during the night. He rarely falls asleep during the day and never while driving. He denies sleep paralysis and cataplexy. He rarely has trouble at school or work due to sleepiness. He occasionally experiences vivid dreamlike scenes upon awakening or falling asleep. He rarely feels afraid of going to sleep. He occasionally has nightmares. He frequently remembers his dreams. He constantly has thoughts racing through his mind. He rarely feels sad or depressed. He frequently has anxiety. He occasionally has muscular tension. He occasionally notices parts of his body jerk. He denies kicking during the. He denies having crawling and aching feelings in his legs and denies having leg pain during the night. He rarely grinds his teeth during sleep but never awakens with morning jaw pain. He is rarely bothered by pain during the day and rarely awakened by pain during the night. He occasionally wakes up feeling stiff in the morning. He rarely wakes up with sore or achy muscles. He occasionally wakes up with pain in the neck, spine and other joints. He goes to bed at 11:30 p.m. on weekdays and at 12:30 a.m. on the weekends. It takes him 10-15 minutes to fall asleep. He wakes up 1-2 times throughout the night for unknown reasons and it can take several hours for him to fall back asleep. He wakes up at 7:00 a.m. on weekdays and at 6:00 a.m. on the weekends. He typically gets 5-6 hours of sleep per night. He will stay in bed for 10-15 minutes after waking up in the morning. He currently lives with his and child. He denies consuming any caffeinated beverages within 2 hours of bedtime. He denies engaging in physical exercise before bedtime. He will watch television before falling asleep. He will take naps in afternoon or the evening but they are not refreshing. He consumes 1 caffeinated beverage per day. He consumes 2 alcoholic beverages per week. He denies tobacco and recreational drug use. FORMERLY [facility] Past Medical History Medical History Mild persistent asthma Hiatal hernia Repaired in 2013 at [facility]. Asthma Surgical History Surgical History History of repair of hiatal hernia Laparoscopic Melvina fundoplication performed at [facility] in 2013. H/O sinus surgery 2011. Family History Family History Mother Breast cancer Father Bladder cancer Diverticulitis Sibling Timo syndrome Sibling Diverticulitis Sibling Diverticulitis Sibling Diverticulitis Social History Social History Social History: Primary care physician: Dr. Anay Dawn Smoking status: Never smoker Second hand tobacco smoke exposure: No Alcohol intake: current Drinks per week: 4 Alcohol use details: BEERS Substance use: never Substance use type: does not use Living arrangements: with family Additional living arrangements comments: His and 2 daughters aged 14 and 10. 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 Gender identity (if verbalized by the patient): Male Spiritual care concerns: No Agree to blood products: Yes Medications Home Medications ?Medication ?Instructions ?Recorded ?Confirmed ?Type albuterol sulfate 90 mcg/actuation 1 puff inhalation Q4H shortness of 05/05/25 06/14/25 Rx aerosol inhaler breath or wheezing #1 device Wixela Inhub 250 mcg-50 mcg/dose 1 inh inhalation BID #60 ea 06/10/25 06/14/25 Rx powder for inhalation (fluticasone propion-salmeterol) doxycycline hyclate 100 mg tablet 100 mg PO BID #20 tabs 06/11/25 06/14/25 Rx buspirone 5 mg tablet See Rx Instructions .Route 07/16/25 Rx .COMPLEX #60 tabs Sleep Procedure The sleep study was completed using Patient Feed a technically adequate device with seven channels: peripheral arterial tone, actigraphy, body position, snore, respiratory movement, pulse oximetry, sleep staging, and heart rate. Prior to using the device, the patient received verbal and written instructions for its application and was provided with the help desk phone number for additional telephonic instruction with 24-hour availability of qualified personnel to answer questions. The study was scored using CMS guidelines. Sleep Architecture The total recording time is 7 hrs, 13 min. The total sleep time is 6 hrs, 32 min. Sleep latency is 17 minutes. REM latency is 27 minutes. The patient had 6 episodes of waking. Sleep architecture shows 19.6% deep sleep, 50.2% light sleep, and (as % Total Sleep Time) showed NREM (Light 50.2%; Deep 19.6%), and a 30.2% stage REM. The patient spent 0.0% of total sleep time in the supine position. Sleep efficiency was 90.53. Respiratory Analysis The overall AHI (pAHI 4%:) is 8.0. The overall AHI (pAHI 3%:) is 12.7. The central AHI is 3.9. The AHI was 6.6 in NREM and 26.7 in REM sleep. The AHI was N/A in Supine and 13.7 in Non-supine sleep. Percent of Mendez Moseley respirations is 0.0. Oximetry Data The oxygen desaturation index (LAURI 4%:) is 4.2. The mean saturation is 95%, and the lowest saturation is 88%. Time spent with saturation < 88% is 0.0 minutes. Snoring Profile Snoring average intensity is 40 dB. The patient snored above 45 decibels for 9.7 minutes, 2.5% of sleep time. Cardiac Profile The average pulse rate is 64 beats per minutes. The lowest pulse rate is 48 bpm. The highest pulse rate reported is 83 bpm. Atrial fibrillation was not detected. Premature beats occur <0.1 per minute. Assessment and Plan Assessment and Plan (1) GEORGINA (obstructive sleep apnea): Code(s): G47.33 - Obstructive sleep apnea (adult) (pediatric) Status: Acute Assessment and Plan: The patient had an overall AHI of 8.0 with desaturation down to 88%. This is consistent with mild sleep apnea. Due to the patient's asthma, he qualifies for treatment. I recommend that the patient be prescribed AutoPAP 5-15 cm H2O, CPAP mask/filters/tubing and heated humidity. A mandibular advancement device is also an acceptable treatment option. This should be used with all episodes of sleep.? Compliance should be reviewed within 31-90 days of starting therapy for usage greater than 4 hours per night greater than 70% of the nights. The patient should be asked about symptoms such as?excessive daytime sleepiness, quality of sleep, decreased nocturia, increased?mental functioning such as memory, mood, and concentration. Data The data obtained during this sleep study is adequate for interpretation. Certification This sleep study has been reviewed by a board certified sleep medicine physician.
[2025-07-20 14:59] VITALS: BMI 29.0
== END 2025-07-07 10:31 | disposition home or self-care (01) ==
PROVIDERS: PCP Student in an Organized Health Care Education/Training Program; Visit Provider Internal Medicine Cardiovascular Disease
DX: G47.10 Hypersomnia, unspecified (principal); G47.33 Obstructive sleep apnea (adult) (pediatric)
CPT/HCPCS: 95800

== ENCOUNTER 2025-07-08 09:19 | Outpatient (CLI) | payer BC, SELFPAY ==
--- NOTE | 2025-07-08 09:22 | EST_ITS ---
Patient Info Name: Paul Dia Age: 55 years : 1970 Gender: Male Ht: 73 in Wt: 220 lbs BSA: 2.29 m2 BP: 117 / 73 mmHg Exam Date: 07/08/2025 9:22 AM Patient Status: O Admit Date: 07/08/2025 Exam Type: CA stress test treadmill A treadmill exercise stress test was performed. Staff Attending Provider: Brandon Moreau DO Exercise Technologist: Chantal Bryan Exercise Physician: Brandon Moreau DO Summary 1. 1. Negative Carlos A exercise stress test for ischemic ST changes by ECG criteria. 2. 2. Reduced functional capacity, achieving 8 METs of workload. 3. 3. Appropriate HR response to exercise. 4. 4. Appropriate HR recovery at 1 minute post exercise. 5. 5. No imaging with stress testing. 6. 6. Patient informed of the above results. Protocol: Carlos A Stress ECG Details Stage: REST Duration (min): 0 min : 53 sec Speed (mph): 0.0 Grade (%): 0 HR (bpm): 64 SBP (mmHg): 117 DBP (mmHg): 73 METS: --- Stage: REST Duration (min): 4 min : 1 sec Speed (mph): 0.0 Grade (%): 0 HR (bpm): 74 SBP (mmHg): 117 DBP (mmHg): 73 METS: --- Stage: STAGE 1 Duration (min): 1 min : 0 sec Speed (mph): 1.7 Grade (%): 10 HR (bpm): 98 SBP (mmHg): 117 DBP (mmHg): 73 METS: --- Stage: STAGE 1 Duration (min): 2 min : 0 sec Speed (mph): 1.7 Grade (%): 10 HR (bpm): 109 SBP (mmHg): 117 DBP (mmHg): 73 METS: --- Stage: STAGE 1 Duration (min): 3 min : 0 sec Speed (mph): 1.7 Grade (%): 10 HR (bpm): 108 SBP (mmHg): 132 DBP (mmHg): 71 METS: --- Stage: STAGE 2 Duration (min): 1 min : 0 sec Speed (mph): 2.5 Grade (%): 12 HR (bpm): 122 SBP (mmHg): 132 DBP (mmHg): 71 METS: --- Stage: STAGE 2 Duration (min): 2 min : 0 sec Speed (mph): 2.5 Grade (%): 12 HR (bpm): 131 SBP (mmHg): 132 DBP (mmHg): 71 METS: --- Stage: STAGE 2 Duration (min): 3 min : 0 sec Speed (mph): 2.5 Grade (%): 12 HR (bpm): 134 SBP (mmHg): 145 DBP (mmHg): 73 METS: --- Stage: STAGE 3 Duration (min): 0 min : 44 sec Speed (mph): 3.4 Grade (%): 14 HR (bpm): --- SBP (mmHg): 116 DBP (mmHg): 65 METS: --- Stage: RECOVERY Duration (min): 0 min : 15 sec Speed (mph): 1.5 Grade (%): 0 HR (bpm): 142 SBP (mmHg): 116 DBP (mmHg): 65 METS: --- Stage: RECOVERY Duration (min): 1 min : 15 sec Speed (mph): 0.0 Grade (%): 0 HR (bpm): 118 SBP (mmHg): 116 DBP (mmHg): 65 METS: --- Stage: RECOVERY Duration (min): 2 min : 15 sec Speed (mph): 0.0 Grade (%): 0 HR (bpm): 103 SBP (mmHg): 116 DBP (mmHg): 65 METS: --- Stage: RECOVERY Duration (min): 3 min : 15 sec Speed (mph): 0.0 Grade (%): 0 HR (bpm): 93 SBP (mmHg): 116 DBP (mmHg): 65 METS: --- Stage: RECOVERY Duration (min): 4 min : 15 sec Speed (mph): 0.0 Grade (%): 0 HR (bpm): 87 SBP (mmHg): 145 DBP (mmHg): 71 METS: --- Stage: RECOVERY Duration (min): 5 min : 8 sec Speed (mph): 0.0 Grade (%): 0 HR (bpm): 88 SBP (mmHg): 123 DBP (mmHg): 76 METS: --- Rest HR: 74 bpm Peak HR: 142 bpm Rest Sys BP: 117 mmHg Peak Sys BP: 145 mmHg Max Pred HR: 167 bpm % Max Pred HR: 85 % Target HR: 142 bpm Max RPP: 20,590 bpm*mmHg Madrigal Score: -6 Termination Reason: Reached target heart rate or workload Cardiac Symptoms: Shortness of breath Max ST Seg Deviation: -2.60 mm Total Time: 6 min : 44 sec Rest Delgado BP: 73 mmHg Peak Delgado BP: 73 mmHg Angina Score: None Total METS: 8.3 Resting ECG Sinus rhythm. Stress ECG No ST changes. Arrhythmias None. Report Signatures
--- NOTE | 2025-07-08 09:35 | ECHO_ITS ---
Patient Info Name: Paul Dia Age: 55 years : 1970 Gender: Male Ht: 73 in Wt: 220 lbs BSA: 2.29 m2 HR: 64 bpm BP: 127 / 94 mmHg Technical Quality: Good Exam Date: 07/08/2025 9:54 AM Patient Status: O Admit Date: 07/08/2025 Exam Type: CA echo doppler color flow Complete two-dimensional, color flow and Doppler transthoracic echocardiogram is performed. Personal Care Aide: Kelly Naik Attending Provider: Brandon Moreau DO Summary 1. Complete two-dimensional, color flow and Doppler transthoracic echocardiogram is performed. 2. Left ventricular chamber dimension is normal. 3. Left ventricular systolic function is normal, estimated at 60-65. 4. The left ventricular diastolic function is normal. 5. E/e' 5 is not elevated. 6. There is mild aortic valve sclerosis. 7. There is mild aortic valve regurgitation. 8. There is trace mitral valve regurgitation. 9. There is trivial pericardial effusion. Left Ventricle E/e' 5 is not elevated. Left ventricular chamber dimension is normal. Left ventricular systolic function is normal, estimated at 60-65. The left ventricular diastolic function is normal. Right Ventricle Right ventricular chamber dimension is normal. Right ventricular systolic function is normal and with normal TAPSE 1.9 cm. Left Atria Left atrial chamber dimension is normal. Right Atria Right atrial chamber dimension is normal. Aortic Valve The aortic valve is trileaflet. There is mild aortic valve sclerosis. There is no aortic valve stenosis. There is mild aortic valve regurgitation. Pulmonic Valve There is no pulmonic regurgitation. Mitral Valve There is no mitral valve stenosis. There is trace mitral valve regurgitation. Tricuspid Valve There is no tricuspid valve regurgitation. Pericardium/Pleural There is trivial pericardial effusion. Inferior Vena Cava Normal inferior vena cava with >50% collapse upon inspiration consistent with normal right atrial pressure, 5 mmHg. Aorta The aortic root size at the sinus of Valsalva is normal. Left Ventricular Outflow Tract Name Value Normal LVOT 2D LVOT Diameter 2.0 cm LVOT Doppler LVOT Peak Velocity 87 cm/s LVOT Peak Gradient 3 mmHg LVOT Mean Gradient 1 mmHg LVOT VTI 19 cm LVOT Stroke Volume 63 ml LVOT CO 4.0 l/min LVOT CI 1.8 l/min/m2 Pulmonic Valve Name Value Normal RVOT Doppler RVOT Peak Velocity 56 cm/s RVOT Peak Gradient 1 mmHg PV Doppler PV Peak Velocity 113 cm/s PV Peak Gradient 5 mmHg Mitral Valve Name Value Normal MV Diastolic Function MV E Peak Velocity 69 cm/s MV A Peak Velocity 51 cm/s MV E/A 1.3 MV Decel Time (PW) 274 ms MV Annular TDI MV E/e' (Septal) 5.8 MV E/e' (Lateral) 5.4 MV E/e' (Average) 5.6 Tricuspid Valve Name Value Normal Estimated PAP/RSVP RA Pressure 5 mmHg <=5 Aortic Valve Name Value Normal AV Doppler AV Peak Velocity 105 cm/s AV Peak Gradient 4 mmHg AV Area (Cont Eq Silas) 2.7 cm2 AV DI (Silas) 0.83 AV Regurgitation 2D LVOT Area 3.2 cm2 Ventricles Name Value Normal LV Dimensions 2D/MM IVS Diastolic Thickness (2D) 1.0 cm 0.6-1.0 LVID Diastole (2D) 4.8 cm 4.2-5.8 LVIW Diastolic Thickness (2D) 0.7 cm 0.6-1.0 LVID Systole (2D) 3.2 cm 2.5-4.0 LVOT Diameter 2.0 cm LV Mass (2D Cubed) 140.18 g 88.00-224.00 LV Mass Index (2D Cubed) 61 g/m2 49-115 Relative Wall Thickness (2D) 0.31 <=0.42 LV Fractional Shortening/Ejection Fraction 2D/MM LV Fractional Shortening (2D) 34 % 25-43 LV EF (2D Teichholz) 63 % LV Diastolic Volume (4C MOD) 110 ml LV EF (4C MOD) 51 % LV Diastolic Volume (2C MOD) 114 ml LV EF (2C MOD) 67 % LV Diastolic Volume (BP MOD) 113 ml 62-150 LV Diastolic Volume Index (BP MOD) 49 ml/m2 34-74 LV Systolic Volume (BP MOD) 46 ml 21-61 LV Systolic Volume Index (BP MOD) 20 ml/m2 11-31 LV EF (BP MOD) 59 % 52-72 LV Diastolic Length (4C) 8.6 cm LV Systolic Length (4C) 7.3 cm LV Stroke Volume (4C MOD) 56 ml Atria Name Value Normal LA Dimensions LA Volume (4C A-L) 36 ml LA Volume (BP A-L) 39 ml RA Dimensions RA Systolic Major [place] Length (4C) 5.6 cm 2.1-2.7 RA Area (4C) 13.9 cm2 <=18.0 Report Signatures
--- OUTSIDE RECORDS SUMMARY | 2025-07-08 09:56 | XMS_ITS | Clinical Summary ---
Author Organization [facility] [address] [place] [address] Care Team Providers Care Emergency Veterinary Technician Name Role Phone Anay Dawn MD Primary Care Provider Allergies Active Allergy Reactions Criticality Noted Date [...] is a risk of orbital injury and TECHNICAL MANAGER injury which could result in blindness or [...] Type Department Care Team Description 06/28/2025 Telephone [facility] [address] [place] [phone] Stephy Mari 06/24/2025 9:15 AM CDT Office Visit [facility] [address] [place] [phone] David Aden MD Dizziness and giddiness (Primary Dx); Chronic pansinusitis; Nasal obstruction 06/22/2025 Telephone [facility] [address] [place] [address] [phone] sinus results and recommendations 06/22/2025 Imaging Exam [facility] [address] [place] [address] [phone] David Aden MD Chronic pansinusitis (Primary Dx) 06/11/2025 2:00 PM CDT Telemedicine [facility] [address] [place] [address] [phone] David Aden MD Chronic pansinusitis (Primary Dx); Dizziness and giddiness 06/11/2025 10:00 AM CDT Procedure visit [facility] [address] [place] [address] [phone] Madison Lin Au.D. Dizziness and giddiness (Primary Dx) 06/11/2025 Telephone [facility] [address] [place] [address] [phone] Shannon Jo LPN Question about Claritin D 06/01/2025 9:30 AM CDT Office Visit [facility] [address] [place] [address] [phone] David Aden MD Sensation of fullness in left ear (Primary Dx); Dizziness and giddiness; Chronic pansinusitis 06/01/2025 9:00 AM CDT Procedure visit [facility] [address] [place] [address] [phone] Madison Lin Au.D. Sensorineural hearing loss (SNHL), [...] on file Legal Sex Male 11:59 PM STOREKEEPER HELPER Gender Identity Not on file Sexual Orientation [...] (Latest Contact Info) Description 07/26/2025 8:28 AM STOREKEEPER HELPER Hospital Encounter [facility] [place] [address] [place] [address] David Aden MD [address] [place] [address] 07/26/2025 8:28 AM STOREKEEPER HELPER - 07/26/2025 10:07 AM STOREKEEPER HELPER Surgery [facility] [place] [address] [place] [address] David Aden MD [address] [place] [address] BILATERAL ENDOSCOPIC TOTAL ETHMOIDECTOMY, BILATERAL FRONTAL SINUSOTOMY, BILATERAL MAXILLARY ANTROSTOMY Scheduled Procedures Name Priority Associated Diagnoses Date/Ti me ENDOSCOPIC SINUS SURGERY. Deviated nasal septum Hypertrophy of nasal turbinates Chronic pansinusitis 07/26/2025 8:28 AM STOREKEEPER HELPER EXCISION INFERIOR TURBINATE. Deviated nasal septum Hypertrophy of nasal turbinates Chronic pansinusitis 07/26/2025 8:28 AM STOREKEEPER HELPER SEPTOPLASTY. Deviated nasal septum Hypertrophy of nasal turbinates Chronic pansinusitis 07/26/2025 8:28 AM STOREKEEPER HELPER Health Maintenance Due Date Last Done Comments Colon Cancer Screening-Colonoscopy 1972 Depression Screening 1972 Hepatitis C Screening 1972 Prostate Cancer Screening-PSA 1972 DTaP/Tdap/Td Vaccine (1 - Tdap) 1983 Hepatitis B Screening 1990 Regular Well Visit/Exam 18-64 1990 Pneumococcal vaccine <65 (1 of 2 - PCV) 1991 Zoster Vaccine (1 of 2) 2022 Influenza Vaccine (#1) 2025 Insurance [facility] ACCESS Care Teams Emergency Veterinary Technician Relationship Specialty Start Date End Date Anay Dawn MD PCP - General Family Medicine 05/13/25
== END 2025-07-08 09:20 | disposition home or self-care (01) ==
PROVIDERS: PCP Student in an Organized Health Care Education/Training Program; Visit Provider Internal Medicine Cardiovascular Disease
DX: I35.8 Other nonrheumatic aortic valve disorders (principal); I35.1 Nonrheumatic aortic (valve) insufficiency; I31.39 Other pericardial effusion (noninflammatory); R00.2 Palpitations
CPT/HCPCS: 93017; 93306